=== PATIENT | male | born 1970 | race Caucasian/White ===

== ENCOUNTER 2023-07-19 07:02 | Outpatient (OUT) | payer BC, SELFPAY ==
[2023-07-19 08:04] LABS: Alanine Aminotransferase 66 U/L (16-63); Anion Gap 17.5; Aspartate Amino Transferase 51 U/L (15-37); BUN Creatinine Ratio 15.3; Calcium 9.7 mg/dL (8.5-10.1); Carbon Dioxide 27.1 mmol/L (21.0-32.0); Chloride 99 mmol/L (98-107); Chol HDL Ratio 4.1; Cholesterol 130 mg/dL (<=200); Estimated GFR (African America >60 (>=60); Estimated GFR (Non-African Ame >60 (>=60); Glucose 129 mg/dL (74-106); HDL Cholesterol 32 mg/dL (40-60); Potassium 3.6 mmol/L (3.5-5.1); Sodium 140 mmol/L (136-145); Triglycerides 299 mg/dL (<=150); VLDL CHOLESTEROL 59.8 mg/dL
== END 2023-07-19 07:03 | disposition home or self-care (01) ==
LOC: LAB 07:02
PROVIDERS: Family Provider Internal Medicine Cardiovascular Disease; PCP Family Medicine; Visit Provider Internal Medicine Cardiovascular Disease
DX: E78.5 Hyperlipidemia, unspecified (principal); I25.10 Atherosclerotic heart disease of native coronary artery without angina pectoris; E11.69 Type 2 diabetes mellitus with other specified complication; Z79.4 Long term (current) use of insulin
CPT/HCPCS: 36415; 80048; 80061; 84450; 84460

== ENCOUNTER 2024-02-28 07:02 | Outpatient (OUT) | payer BC, SELFPAY ==
[2024-02-28 07:54] LABS: Alanine Aminotransferase 37 U/L (16-63); Aspartate Amino Transferase 25 U/L (15-37)
== END 2024-02-28 07:03 | disposition home or self-care (01) ==
LOC: LAB 07:02
PROVIDERS: Family Provider Internal Medicine Cardiovascular Disease; PCP Family Medicine; Visit Provider Internal Medicine Cardiovascular Disease
DX: I25.10 Atherosclerotic heart disease of native coronary artery without angina pectoris (principal); Z98.61 Coronary angioplasty status; E78.2 Mixed hyperlipidemia
CPT/HCPCS: 36415; 84450; 84460

== ENCOUNTER 2025-01-28 07:27 | Outpatient (OUT) | payer BC, SELFPAY ==
--- OUTSIDE RECORDS SUMMARY | 2025-01-28 07:29 | XMS_ITS | Encounter Summary ---
Author Organization [facility] Address [address] [place] [address] Phone Care Team Providers Care Livestock Nutrition Territory Manager Name Role Phone Sherly Prasad MD Primary Care Provider [phone] Encounter Details Date Type Department Care Team (Late st Contact Info) Description 07/19/2023 Scanned Document [facility] [address] [place] [id number] Scanning, Generic Provider Social History Tobacco Use Types Packs/Day Years Used Date Smoking Tobacco: Former Cigarettes Smokeless Tobacco: Current Chew Alcohol Use Standard Drinks/Week Comments Never 0 (1 standard drink = 0.6 oz pur e alcohol) Sex and Gender Information Value Date Recorded Sex Assigned at Not on file Legal Sex Male 7:14 PM EST Gender Identity Not on file Sexual Orientation Not on file documented as of this encounter Plan of Treatment Upcoming Encounters Date Type Department Care Team (Late st Contact Info) Description 03/03/2025 11:00 AM EST Office Visit [address] [place] [phone] Marcus Barker, [address] [address], [address] [place] [address] 01/09/2026 8:30 AM EDT Office Visit [facility] [address] [place] [address] [address] [place] [address] Aleisha Fox, PARTS DELIVERY DRIVER-CLERICAL OFFICE [address] [facility] [address], [address] [place], [place] [id number] documented as of this encounter Visit Diagnoses Not on filedocumented in this encounter Care Teams Livestock Nutrition Territory Manager Relationship Specialty Start Date End Date Sherly Prasad MD [address] [place], [place] [id number] PCP - General 04/28/09 documented as of this encounter
--- OUTSIDE RECORDS SUMMARY | 2025-01-28 07:29 | XMS_ITS | Clinical Summary ---
Author Organization [facility] Address [address] [place] [address] Phone Care Team Providers Care Diamond Driller Name Role Phone Sherly Prasad MD Primary Care Provider [phone] Allergies Active Allergy Reactions Criticality Noted Date Comments Sergo Inhibitors Cough Low 02/05/2023 Medications aspirin 81 mg EC tablet Take 1 tablet (81 mg) by mouth once daily. 02/15/20 22 Active metFORMIN (Glucophage) 1,000 mg tablet Take 1 tablet (1,000 mg) by mouth 2 times daily (morning and late afternoon). Active glipiZIDE XL (Glucotrol XL) 10 mg 24 hr tablet Take 1 tablet (10 mg) by mouth once daily. Do not crush, chew, or split. Active pregabalin (Lyrica) 225 mg capsule Take 1 capsule (225 mg) by mouth 2 times a day. Active DULoxetine (Cymbalta) [address] capsule Take 1 capsule (30 mg) by mouth once daily. Do not crush or chew. Active empagliflozin (Jardiance) 10 mg Take 1 tablet (10 mg) by mouth once daily. Active hydroCHLOROthiazid e (HYDRODiuril) 50 mg tabletIndications: Essential hypertension, benign Take 1 tablet (50 mg) by mouth once daily. 90 tablet 3 02/25/20 24 025 Active nitroglycerin (Nitrostat) 0.4 mg SL tabletIndications: ASHD (arteriosclerotic heart disease),History of PTCA PLACE 1 TABLET UNDER YOUR TONGUE EVERY 5 MINUTES NEEDED FOR CHEST PAIN FOR 3 DOSES ONLY. IF NO RELIEF, CALL 911 25 tablet 3 12/29/19 25 Active metoprolol succinate XL (Toprol-XL) 25 mg 24 hr tabletIndications: Essential hypertension, benign Take 0.5 tablets (12.5 mg) by mouth once daily. 45 tablet 01/21/20 25 025 Active atorvastatin (Lipitor) 80 mg tabletIndications: Mixed hyperlipidemia Take 1 tablet (80 mg) by mouth once daily. 90 tablet 3 01/25/20 25 026 Active losartan (Cozaar) 100 mg tabletIndications: Essential hypertension, benign Take 1 tablet (100 mg) by mouth once daily. 90 tablet 3 01/25/20 25 026 Active atorvastatin (Lipitor) 80 mg tabletIndications: Mixed hyperlipidemia Take 1 tablet (80 mg) by mouth once daily. 90 tablet 3 02/25/20 24 025 Discontinued losartan (Cozaar) 100 mg tabletIndications: Essential hypertension, benign Take 1 tablet (100 mg) by mouth once daily. 90 tablet 3 02/25/20 025 Discontinued metoprolol succinate XL (Toprol-XL) 25 mg 24 hr tabletIndications: Essential hypertension, benign Take 0.5 tablets (12.5 mg) by mouth once daily. Do not crush or chew. 45 tablet 3 02/25/20 24 025 Discontinued Active Problems Problem Noted Date Diagnosed Date Obesity (BMI 30-39.9) 02/25/2024 Former smoker 02/25/2024 ASHD (arteriosclerotic heart disease) 02/05/2023 Diabetes (Multi) 02/05/2023 Essential hypertension, benign 02/05/2023 History of non-ST elevation myocardial infarctio n (NSTEMI) 02/05/2023 History of PTCA 02/05/2023 Hyperlipidemia 02/05/2023 Encounters Date Type Department Care Team Description 01/21/[address] [phone] Marcus Barker DO Mixed hyperlipidemia; Essential hypertension, benign 01/19/[address] [phone] Marcus Barker DO Essential hypertension, benign 01/06/2025 11:00 AM EDT Office Visit [facility] [address] [phone] Marcus Barker DO ASHD (arteriosclerotic heart disease); History of PTCA; History of non-ST elevation myocardial infarction (NSTEMI); Hyperlipidemia, unspecified hyperlipidemia type; Essential hypertension, benign; Obesity (BMI 30-39.9); Former smoker Discharge Disposition: Home 01/06/2025 Travel 12/23/[address] [phone] Marcus Barker DO ASHD (arteriosclerotic heart disease); History of PTCA from Last 3 Months Family History Medical History Relation Name Comments CABG Father Diabetes Father Heart attack Father Hyperlipidemia Father Relation Name Status Comments Father Social History Tobacco Use Types Packs/Day Years Used Date Smoking Tobacco: Former Cigarettes 0.5 11 S tarted: 1986 Smokeless Tobacco: Current Chew Tobacco Cessation:Ready to Q uit: Not Asked; Counseling Given: Not Answered Alcohol Use Standard Drinks/Week Comments Never 0 (1 standard drink = 0.6 oz pur e alcohol) Sex and Gender Information Value Date Recorded Sex Assigned at Not on file Legal Sex Male 7:14 PM EST Gender Identity Not on file Sexual Orientation Not on file Last Filed Vital Signs Vital Sign Reading Time Taken Comments Blood Pressure 144/80 01/06/2025 11:51 AM EDT Pulse 56 01/06/2025 11:51 AM EDT Temperature - - Respiratory Rate - - Oxygen Saturation - - Inhaled Oxygen Concentration - - Weight 118 kg (261 lb) 01/06/2025 11:51 AM EDT Height 180.3 cm (5' 11 ) 01/06/2025 11:51 AM EDT Body Mass Index 36.4 01/06/2025 11:51 AM EDT Plan of Treatment Upcoming Encounters Date Type Department Care Team (Late st Contact Info) Description 03/03/2025 11:00 AM EST Office Visit [address] [phone] Marcus Barker DO [address] [place] [address] [address], [address] [address] 01/09/2026 8:30 AM EDT Office Visit [facility] [address] [facility] [address] [place] [address] Aleisha Fox, CHIPPER OPERATOR-WEB DESIGN INTERN [address] [facility] [address] [place] [address] Health Maintenance Due Date Last Done Comments CT Colonography 1969 Colonoscopy 1969 Colorectal Cancer Screening 1969 Diabetes: Hemoglobin A1C 1969 Diabetes: Urine Protein Screening 1969 FIT-DNA (Cologuard) 1969 FIT 1969 HIV Screening 1969 Lipid Panel 1969 Sigmoidoscopy 1969 MMR Vaccines (1 of 1 - Stand saleem series) 1970 Diabetes: Retinopathy Screening 07/27/1979 Hepatitis C Screening 07/27/1987 Hepatitis B Vaccines (1 of 3 - 19+ 3-dose series) 1988 Pneumococcal Vaccine (1 of 2 - PCV) 1988 DTaP/Tdap/Td Vaccines (1 - Tdap) 07/27/1991 PSA Prostate Cancer Screening 07/27/2019 Zoster Vaccines (1 of 2) 07/27/2019 Yearly Adult Physical 02/16/2024 02/14/2023 COVID-19 Vaccine (1 - 2023-2 5 season) 2024 Influenza Vaccine (#1) 2024 HIB Vaccines Aged Out No longer eligi ble based on patient's age to complete this topic HPV Vaccines Aged Out No longer eligi ble based on patient's age to complete this topic Hepatitis A Vaccines Aged Out No long er eligible based on patient's age to complete this topic IPV Vaccines Aged Out No longer eligi ble based on patient's age to complete this topic Meningococcal Vaccine Aged Out No arvin anastasiya eligible based on patient's age to complete this topic Rotavirus Vaccines Aged Out No longer eligible based on patient's age to complete this topic Insurance [facility] Care Teams Diamond Driller Relationship Specialty Start Date End Date Sherly Prasad MD [address] [place] [id number] PCP - General 04/28/09
--- OUTSIDE RECORDS SUMMARY | 2025-01-28 07:29 | XMS_ITS | Encounter Summary ---
Author Organization [facility] Address [address] [place] [address] Phone Care Team Providers Care Director [employer] Name Role Phone Sherly Prasad MD Primary Care Provider [phone] Encounter Details Date Type Department Care Team (Late st Contact Info) Description 02/14/2023 Scanned Document [facility] [address] [place] [phone] Scanning, Generic Provider Social History Tobacco Use Types Packs/Day Years Used Date Smoking Tobacco: Never Assessed Sex and Gender Information Value Date Recorded Sex Assigned at Not on file Legal Sex Male 7:14 PM EST Gender Identity Not on file Sexual Orientation Not on file documented as of this encounter Plan of Treatment Upcoming Encounters Date Type Department Care Team (Late st Contact Info) Description 03/03/2025 11:00 AM EST Office Visit [address] [phone] Marcus Barker DO [facility] [facility] 2, [address] [address] 01/09/2026 8:30 AM EDT Office Visit [address] [phone] Aleisha Fox, MANAGER SMALL BUSINESS-MICROBIOLOGICAL LABORATORY TECHNICIAN [facility] 2, [address] [address] documented as of this encounter Visit Diagnoses Not on filedocumented in this encounter Care Teams Director [employer] Relationship Specialty Start Date End Date Sherly Prasad MD [address] [place] [address] [place] [address] PCP - General 04/28/09 documented as of this encounter
--- OUTSIDE RECORDS SUMMARY | 2025-01-28 07:29 | XMS_ITS | CCD ---
Author Organization [facility] Care Team Providers Care Arts Administrator Or Manager Name Role Phone Sherly Thompson Unavailable Unavailable Unavailable SHERLY THOMPSON Primary Care Physician Aylin, Dr. Velazquez Referring Unavailable Aylin, Dr. Velazquez Attending Unavailable Donna, Dr. Sherly Gee Primary Care Unav ailable DONNA, DR SHERLY Francis Primary Care Unavailable REQUEST, NONE LISTED Attending Unavaila ble REQUEST, NONE LISTED Admitting Unavaila ble REQUEST, NONE LISTED Consulting Unavaila ble AYLIN, DR ANGELIQUE Darden Consulting Diana THOMPSON, DR SHERLY Francis Primary Care Unavailable REQUEST, NONE LISTED Consulting Unavaila ble REQUEST, NONE LISTED Attending Unavaila ble REQUEST, NONE LISTED Admitting Unavaila ble AYLIN, DR ANGELIQUE Darden Attending Diana VIERA, DR ANGELIQUE Darden Admitting Diana THOMPSON, DR SHERLY Francis Primary Care Unavailable AYLIN, DR ANGELIQUE Darden Consulting Sherly Noyola Unavailable Sherly Thompson MD Primary Care Provider LUIS ALVES Attending Unavailable MARTINE DE LEON Attending Unavailable LUIS ALVES Attending Unavailable Sherly Thompson MD Primary Care Provider ANGELIQUE VIERA Referring Unavailable SHERLY THOMPSON Primary Care Unavailable Sherly Thompson MD Primary Care Provider [phone] Sherly Tohmpson MD Primary Care Provider Sherly Thompson MD Attending Provider Tony LUGO-SHILOH-Kendra Luque Attending Provider ANGELIQUE VIERA Attending Unavailable SHERLY THOMPSON Primary Care Unavailable ANGELIQUE VIERA Attending Unavailable ANGELIQUE VIERA Referring Unavailable SHERLY THOMPSON Primary Care Unavailable Allergies Allergy Classification Reported Allergen(s) Allergy Type Date of Onset Reaction(s) Facility (7 sources) Angiotensin Converting Enzyme (Sergo) Inhibitors; Translations: [SERGO Inhibitors] Allergy to drug (finding) 3 [facility] [place] Repository (1 source) patient allergy list reviewed by nurse or physicia Propensity to adverse reactions 7 Comment:Done [place] Other (1 source) Allergies Reconciled Propensity to adverse reactions Unknown [facility] Other (4 sources) Angiotensin-con verting enzyme inhibitor agent Drug Intolerance 3 [facility] Medications Current Medications Medication Drug Class(es) Dates Sig (Normalized) Sig (Original) alpha lipoic acid (LIPOIC ACID ORAL) (1 source) End: 02-20-2023 take 2 capsules by mouth once daily alpha lipoic acid (LIPOIC ACID ORAL) Take 2 capsules by mouth once daily. 0 02/20/2023 Discontinued (Other) aspirin 81 mg delayed release oral tablet (19 sources) Platelet Aggregation Inhibitor, Nonsteroidal Anti-inflammatory Drug Start: 02-14-2022 take 1 tablet by mouth once daily aspirin 81 mg EC tablet Take 1 tablet (81 mg) by mouth once daily. 02/14/2022 Active Start: 01-22-2018 take 1 tablet by chela once daily Aspirin 81 mg Tablet,Chewable Active 81 MG PO Daily 0 January 22, 2018 12:00am Complies with drug therapy take 1 capsule by mo vah once daily aspirin ([place]) 81 MG capsule Take 81 mg by mouth Daily Do not crush or chew. Active Baby Aspirin Act ange atorvastatin 80 mg oral tablet (20 sources) HMG-CoA Reductase Inhibitor Start: 01-23-2018 End: 02-24-2025 take 1 tablet by mouth once daily atorvastatin (Lipitor) 80 mg tablet Indications: Mixed hyperlipidemia Take 1 tablet (80 mg) by mouth once daily. 90 tablet 3 02/25/2024 02/24/2025 Active empagliflozin 25 mg oral tablet (20 sources) Sodium-Glucose Cotransporter 2 Inhibitor Start: 11-14-2023 End: 08-26-2024 take 1 tablet by mouth once daily Empagliflozin (Jardiance) 25 mg tablet Active 0 .ROUTE .COMPLEX August 26, 2024 8:37am TAKE 1 TABLET BY MOUTH EVERY DAY Complies with drug therapy Start: 08-15-2023 End: 11-14-2023 take 1 tablet by mouth once daily Empagliflozin (Jardiance) 25 mg tablet Discontinued 25 MG PO Daily August 15, 2023 12:00am November 14, 2023 10:51am Start: 02-14-2023 End: 08-15-2023 take 1 tablet by mouth once daily Empagliflozin (Jardiance) 10 mg tablet Discontinued 10 MG PO Daily August 15, 2023 12:00am August 15, 2023 8:49am Flash Glucose Scanning [place] (Freestyle Mili 2 [place]) misc (2 sources) Start: 03-12-2024 Flash Glucose Scanning [place] (Freestyle Mili 2 [place]) misc Active 0 .Route March 12, 2024 1:00am As directed Flash Glucose Sensor (Freestyle Mili 2 Sensor) kit (2 sources) Start: 03-12-2024 Flash Glucose Sensor (Freestyle Mili 2 Sensor) kit Active 0 .Route March 12, 2024 1:00am As directed glipiZIDE er 10 mg 24 hr extended release oral tablet (20 sources) Sulfonylurea Start: 03-24-2024 take 1 tablet by mouth once daily at breakfast Glipizide 10 mg tablet extended release 24hr Active 0 .ROUTE .COMPLEX March 24, 2024 2:55pm TAKE ONE TABLET BY MOUTH ONCE DAILY WITH BREAKFAST Complies with drug therapy Start: 12-24-2023 take 1 tablet by chela th every twenty-four hours at mealtime glipiZIDE XL (Glucotrol XL) 10 MG 24 hr tablet Take 10 mg by mouth in the morning. Take with meals. 12/24/2023 Active Start: 08-16-2022 End: 03-24-2024 take 1 tablet by mouth once daily at breakfast Glipizide 10 mg tablet extended release 24hr Discontinued 10 MG PO Daily August 15, 2023 12:00am March 24, 2024 2:55pm FreeTextSi tablet with breakfast Orally Once a day; Note: Source Status: Start; Refills: 3; Qty: 90 Tablet; Provider: Donna Dubois ( ) Start: 02-03-2021 End: 02-20-2023 take 1 tablet by mouth once daily glipiZIDE ER 5 MG Or al Tablet Extended Release 24 Hour TAKE ONE TABLET BY MOUTH DAILY Quantity: 30 Refills: 0 Ordered: 03-Feb-2021 Start : 03-Feb-2021 Active take 1 tablet by chela th before mealtime glipiZIDE (Glucotrol) 5 MG tablet Take 5 mg by mouth in the morning. Take before meals. Active hydroCHLOROthiazide 50 mg oral tablet (20 sources) Thiazide Diuretic Start: 06-26-2023 End: 12-25-2023 take 1 tablet by mouth once daily in the morning Hydrochlorothiazide 50 mg tablet Discontinued 0 .ROUTE .COMPLEX October 27, 2023 9:33am December 25, 2023 8:16am TAKE ONE TABLET BY MOUTH ONCE DAILY IN THE MORNING Start: 08-16-2022 End: 02-24-2025 take 1 tablet by mouth once daily hydroCHLOROthiazide (HYDRODiuril) 50 mg tablet Indications: Essential hypertension, benign Take 1 tablet (50 mg) by mouth once daily. 90 tablet 3 02/25/2024 02/24/2025 Active Start: 02-28-2022 End: 02-20-2023 take 1 capsule by mouth once daily hydroCHLOROthiazide 12.5 MG Oral Capsule TAKE ONE CAPSULE BY MOUTH DAILY Quantity: 90 Refills: 3 Ordered: 01-Mar-2022 Aylin SMALLWOOD Angelique Start : 28-Feb-2022 Active hydroCHLOROthiazide 25 mg / lisinopril 20 mg oral tablet (2 sources) Thiazide Diuretic, Angiotensin Converting Enzyme Inhibitor Start: 01-21-2018 take 1 tablet by mouth once daily Lisinopril-Hydrochlorothiazide 20-25 mg Tablet Active 1 TAB PO Daily January 21, 2018 12:00am Complies with drug therapy losartan potassium 100 mg oral tablet (20 sources) Angiotensin 2 Receptor Tom Start: 08-15-2023 End: 02-24-2025 take 1 tablet by mouth once daily losartan (Cozaar) 100 mg tablet Indications: Essential hypertension, benign Take 1 tablet (100 mg) by mouth once daily. 90 tablet 3 02/25/2024 02/24/2025 Active Start: 02-05-2023 End: 02-20-2023 take 1 tablet by mouth once daily losartan (Cozaar) 100 mg tablet Indications: Essential hypertension, benign TAKE ONE TABLET BY MOUTH ONCE DAILY 90 tablet 3 02/05/2023 Active metFORMIN hydrochloride 1000 mg oral tablet (20 sources) Biguanide Start: 07-22-2024 take 1 tablet by mouth twice daily Metformin 1,000 mg tablet Active 0 .ROUTE .COMPLEX 60 July 22, 2024 3:53pm TAKE ONE TABLET BY MOUTH TWICE A DAY Complies with drug therapy Start: 03-12-2024 End: 07-22-2024 take 1 tablet by mouth once daily Metformin 1,000 mg tablet Discontinued 0 .ROUTE .COMPLEX March 12, 2024 10:17am July 22, 2024 3:53pm TAKE ONE TABLET BY MOUTH once A DAY Start: 07-24-2023 End: 03-12-2024 take 1 tablet by mouth twice daily Metformin 1,000 mg tablet Discontinued 0 .ROUTE .COMPLEX 60 February 16, 2024 4:55pm March 12, 2024 10:17am TAKE ONE TABLET BY MOUTH TWICE A DAY Start: 11-20-2021 End: 07-24-2023 take 1 tablet by mouth twice daily Metformin 1,000 mg tablet Discontinued 1000 MG PO Twice daily July 24, 2023 12:00am July 24, 2023 12:59pm Start: 02-03-2021 metFORMIN HCl - 500 MG Oral Tablet Quantity: 60 Refills: 0 Ordered: 03-Feb-2021 DO Start : 03-Feb-2021 Active metoprolol tartrate 25 mg oral tablet (20 sources) beta-Adrenergic Tom Start: 03-12-2024 Metopr olol Tartrate 25 mg tablet Active 12.5 MG PO Daily March 12, 2024 10:03am Complies with drug therapy Start: 02-25-2024 End: 02-24-2025 take 0.5 tablet by mouth once daily metoprolol succinate XL (Toprol-XL) 25 mg 24 hr tablet Indications: Essential hypertension, benign Take 0.5 tablets (12.5 mg) by mouth once daily. Do not crush or chew. 45 tablet 3 02/25/2024 02/24/2025 Active Start: 01-22-2024 End: 02-25-2024 take 0.5 tablet by mouth in the morning metoprolol tartrate (Lopressor) 25 mg tablet Indications: ASHD (arteriosclerotic heart disease) , Essential hypertension, benign , History of non-ST elevation myocardial infarction (NSTEMI) Take 0.5 tablets (12.5 mg) by mouth early in the morning.. 45 tablet 3 02/25/2024 02/25/2024 Discontinued (Therapy completed) Start: 03-04-2022 End: 02-20-2023 metoprolol tartrate (Lopress or) 25 mg tablet Indications: History of non-ST elevation myocardial infarction (NSTEMI) , ASHD (arteriosclerotic heart disease) , Essential hypertension, benign TAKE HALF TABLET TWICE A DAY 90 tablet 3 02/05/2023 Active Start: 01-23-2018 End: 03-12-2024 take 1 tablet by mouth twice daily Metoprolol Tartrate 25 mg Tablet Discontinued 25 MG PO Twice daily 60 January 23, 2018 12:00am March 12, 2024 10:04am Metoprolol Succi tracy 25 MG 1 tablet once a day Active take 1 tablet by chela once daily Metoprolol Tartrate 25 MG Oral Tablet TAKE 1 TABLET DAILY. Quantity: 0 Refills: 0 Ordered: 14-Feb-2022 DO Active nitroglycerin 0.4 mg sublingual tablet (6 sources) Nitrate Vasodilator Start: 12-28-2024 nitroglyce rin (Nitrostat) 0.4 mg SL tablet Indications: ASHD (arteriosclerotic heart disease) , History of PTCA PLACE 1 TABLET UNDER YOUR TONGUE EVERY 5 MINUTES NEEDED FOR CHEST PAIN FOR 3 DOSES ONLY. IF NO RELIEF, CALL 911 25 tablet 3 12/28/2024 Active Start: 02-20-2023 End: 02-20-2024 nitroglycerin (Nitrostat) 0. 4 mg SL tablet Indications: ASHD (arteriosclerotic heart disease) , History of PTCA Place 1 tablet (0.4 mg) under the tongue every 5 minutes if needed for chest pain. May repeat dose every 5 minutes for up to 3 doses total. 100 tablet 11 02/20/2023 Active pregabalin 225 mg oral capsule (20 sources) Start: 09-22-2024 take 1 capsule by mouth twice daily Pregabalin 225 mg capsule Active 225 MG PO Twice daily 60 September 22, 2024 8:23am Complies with drug therapy Start: 03-12-2024 End: 09-22-2024 take 1 capsule by mouth twice daily Pregabalin 200 mg capsule Discontinued 200 MG PO Twice daily 60 30 August 23, 2024 8:25am September 22, 2024 8:23am Start: 08-21-2022 End: 03-12-2024 take 1 capsule by mouth twice daily Pregabalin 225 mg capsule Discontinued 225 MG PO Twice daily August 15, 2023 8:50am September 25, 2023 8:43am FreeTextSi capsule Orally Twice a day; Note: Source Status: Start; Refills: 1; Qty: 180 Capsule; Provider: Donna Dubios ( ) Start: 08-02-2022 take 1 capsule by mo uth twice daily Pregabalin 200 MG TAKE ONE CAPSULE BY MOUTH TWICE A DAY for 30 days Jul, Active Start: 10-08-2021 End: 02-20-2023 take 1 capsule by mouth twice daily pregabalin (Lyrica) 150 mg capsule Take 1 capsule (150 mg) by mouth 2 times a day. 0 10/08/2021 02/20/2023 Discontinued (Other) Start: 04-06-2021 take 1 capsule by mo uth twice daily Pregabalin 100 MG Oral Capsule TAKE ONE CAPSULE BY MOUTH TWICE A DAY Quantity: 60 Refills: 0 Ordered: 04-Jun-2021 DO Start : 06-Apr-2021 Complete Start: 02-07-2021 Pregabalin 75 MG Oral Capsule Quantity: 60 Refills: 0 Ordered: 07-Feb-2021 DO Start : 07-Feb-2021 Active Completed/Discontinued Medications Medication Drug Class(es) Dates Sig (Normalized) Sig (Original) azithromycin 250 mg oral tablet (2 sources) Macrolide Antimicrobial Start: 07-27-2024 End: 09-10-2024 Azithromycin 250 mg tablet Discontinued 0 PO .COMPLEX July 27, 2024 12:00am September 10, 2024 9:21am For 250 mg dose pack: take 500 mg today (day 1), then 250 mg for 4 days (days 2-5) PO benzonatate 200 mg oral capsule (2 sources) Non-narcotic Antitussive Start: 07-27-2024 End: 09-10-2024 Benzonatate 200 mg capsule Discontinued 200 MG PO 2-3 TIMES PER DAY as needed for cough July 27, 2024 12:00am September 10, 2024 9:25am cephalexin 500 mg oral capsule (2 sources) Cephalosporin Antibacterial Start: 08-15-2023 End: 03-12-2024 take 1 capsule by mouth three times daily Cephalexin 500 mg capsule Discontinued 500 MG PO Three times daily 15 11August 15, 2023 12:00am March 12, 2024 10:23am clopidogrel 75 mg oral tablet (2 sources) [id number] Platelet Inhibitor Start: 01-23-2018 End: 02-17-2019 take 1 tablet by mouth once daily Clopidogrel (Plavix) 75 mg tablet Discontinued 75 MG PO Daily January 23, 2018 12:00am February 16, 2019 12:00am February 17, 2019 12:02am DULoxetine 30 mg delayed release oral capsule (11 sources) Serotonin and Norepinephrine Reuptake Inhibitor Start: 08-15-2023 End: 09-10-2024 take 1 capsule by mouth once daily Duloxetine (Cymbalta) 30 mg capsule,delayed release(DR/EC) Discontinued 30 MG PO Daily August 15, 2023 12:00am September 10, 2024 9:24am FreeTextSi capsule Orally Once a day; Note: Source Status: Continue; Provider: SMOOTH Flash Glucose Scanning [place] (Freestyle Mili 14 Day [place]) misc (2 sources) Start: 03-12-2024 End: 03-12-2024 Flash Glucose Scanning [place] (Freestyle Mili 14 Day [place]) misc Discontinued 0 .Route March 12, 2024 1:00am March 12, 2024 2:27pm As directed Flash Glucose Sensor (Freestyle Mili 14 Day Sensor) kit (2 sources) Start: 03-12-2024 End: 03-12-2024 Flash Glucose Sensor (Freestyle Mili 14 Day Sensor) kit Discontinued 0 .Route March 12, 2024 1:00am March 12, 2024 2:27pm As directed Lipoic Acid CAPS (4 sources) Lipoic Acid CAPS 2 tabs daily Quantity: 0 Refills: 0 Ordered: 14-Feb-2022 DO Active Problems Active Problems Problem Classification Problem Date Documented Da te Episodic/Chronic Acute myocardial infarction (2 sources) Myocardial infarction; Translations: [Non-ST elevation (NSTEMI) myocardial infarction] 04-09-2023 Chronic Comment on above: Problem List clean-u p per request of Phys. EHR Cmte Chronic obstructive pulmonary disease and bronchiectasis (2 sources) Bronchitis; Translations: [Bronchitis, not specified as acute or chronic] 07-27-2024 Episodic Coronary atherosclerosis and other heart disease (20 sources) History of non-ST segment elevation myocardial infarction; Translations: [Old myocardial infarction] Onset: 07-05-2022 Chronic Coronary atherosclerosis and other heart disease (5 sources) Coronary angioplasty status; Translations: [CORONARY ANGIOPLASTY STATUS] Onset: 07-09-2022 Episodic Diabetes mellitus with complications (20 sources) Diabetic peripheral neuropathy; Translations: [Type 2 diabetes mellitus with diabetic polyneuropathy] Onset: 02-05-2023 Chronic Diabetes mellitus without complication (14 sources) Diabetes mellitus; Translations: [Diabetes mellitus without mention of complication, type II or unspecified type, not stated as uncontrolled] Onset: 02-05-2023 02-05-2023 Chronic Disorders of lipid metabolism (20 sources) Hyperlipidemia; Translations: [Other and unspecified hyperlipidemia] Onset: 02-05-2023 02-20-2023 Chronic Essential hypertension (20 sources) Benign essential hypertension; Translations: [Benign essential hypertension] Onset: 08-13-2016 Chronic Comment on above: Problem List clean-u p per request of Phys. EHR Cmte Open wounds of extremities (1 source) Laceration of upper arm; Translations: [Laceration without foreign body of left upper arm, initial encounter] Onset: 09-19-2021 Episodic Other aftercare (3 sources) Long-term current use of insulin; Translations: [senior care (current) use of insulin] Episodic Other circulatory disease (1 source) Elevated blood-pressure reading without diagnosis of hypertension; Translations: [Elevated blood-pressure reading, without diagnosis of hypertension] Episodic Other connective tissue disease (1 source) Neuralgia; Translations: [Neuralgia and neuritis, unspecified] Episodic Other nervous system disorders (1 source) Mononeuropathy of lower limb; Translations: [Unspecified mononeuropathy of bilateral lower limbs] Chronic Other nervous system disorders (7 sources) Polyneuropathy; Translations: [Polyneuropathy, unspecified] Onset: 12-03-2023 01-05-2024 Chronic Other nervous system disorders (4 sources) Bilateral ulnar nerve disorder; Translations: [Lesion of ulnar nerve, bilateral upper limbs] 01-05-2024 Chronic Other nutritional; endocrine; and metabolic disorders (5 sources) Severe obesity; Translations: [Morbid obesity] Chronic Other nutritional; endocrine; and metabolic disorders (6 sources) Obesity; Translations: [Obesity, unspecified] 04-09-2023 Chronic Comment on above: Problem List clean-u p per request of Phys. EHR Cmte Other nutritional; endocrine; and metabolic disorders (1 source) Obese class II; Translations: [Body mass index (BMI) 36.0-36.9, adult] Chronic Other nutritional; endocrine; and metabolic disorders (5 sources) Body mass index 30+ - obesity; Translations: [Body mass index (BMI) 35.0-35.9, adult] Onset: 02-25-2024 02-25-2024 Chronic Other nutritional; endocrine; and metabolic disorders (2 sources) Obesity caused by energy imbalance; Translations: [Morbid (severe) obesity due to excess calories] 09-10-2024 Chronic Other nutritional; endocrine; and metabolic disorders (2 sources) Obesity, unspecified; Translations: [Obesity, unspecified] Onset: 01-06-2025 Chronic Other nutritional; endocrine; and metabolic disorders (2 sources) Body mass index (BMI) 35.0-35.9, adult; Translations: [Body mass index (BMI) 35.0-35.9, adult] Onset: 02-25-2024 Chronic Other screening for suspected conditions (not mental disorders or infectious disease) (3 sources) Encounter for screening for malignant neoplasm of colon; Translations: [Patient encounter status] Episodic Residual codes; unclassified (5 sources) Chews tobacco ; Translations: [Uses chewing tobacco] Episodic Residual codes; unclassified (2 sources) Colon cancer screening declined; Translations: [Procedure and treatment not carried out because of patient's decision for unspecified reasons] 09-10-2024 Episodic Screening and history of mental health and substance abuse codes (12 sources) Ex-smoker; Translations: [Personal history of tobacco use] Onset: 02-25-2024 02-25-2024 Episodic Skin and subcutaneous tissue infections (2 sources) Cellulitis of lower leg; Translations: [Cellulitis of right lower limb] 08-16-2023 Episodic Past or Other Problems Problem Classification Problem Date Documented Da te Episodic/Chronic Other aftercare (2 sources) exterminator termite (current) use of insulin; Translations: [senior care (current) use of insulin (Multi)] Onset: 02-05-2023 Episodic Other nervous system disorders (3 sources) Paresthesia; Translations: [Paresthesia of skin] Onset: 12-03-2023 12-03-2023 Episodic Results Test Name Value Interpretation Reference Range Facility Cardiac stress study Hortencia jean baptiste 03-18-[address], [address] [place] [address] Exercise Stress Test Patient Name: KEVON MAYEN Ordering Provider: [id number] ANGELIQUE VIERA Study Date: 03/18/2024 Reading Physician: [id number] Leena Ramirez MD MRN/PID: [id number] Supervising Physician: [id number] Angelique Viera DO Fellow: Date of /Age: 3 1970 / 53 years Fellow: Gender: M Nurse: Dorothea Westfall RN Admission Status: Algorithm Developer: RANJIT Height: 180.34 cm Technologist: Weight: 115.21 kg Additional Staff: BSA: 2.33 m2 BMI: 35.43 kg/m2 Patient Location: Study Type: STRESS TEST ONLY Diagnosis/ICD: Atherosclerotic heart disease-I25.10; Old myocardial infarction-I25.2; Essential (primary) hypertension-I10; Coronary angioplasty status (PTCA)-Z98.61; Hyperlipidemia unspecified-E78.5 Indication: Hypertension CPT Codes: Stress Test Interpretation-03958 ; Stress Test Supervision-[id number] Falls Risk: Low: Patient has low risk for sustaining a fall; environmental safety interventions in place. Study Details: Correct procedure and correct patient verified verbally. Patient Performance: The peak heart rate achieved was 131 bpm, which was 79 % of the age predicted target heart rate of 165 bpm. The resting blood pressure was 128/82 mmHg with a heart rate of 59 bpm. The standing blood pressure was 126/80 mmHg with a heart rate of 62 bpm. The patient's functional capacity was below average. The patient developed leg fatigue during the stress exam. The symptoms resolved with rest. The blood pressure response was normal. The test was terminated due to: leg fatigue and musculoskeletal weakness. Sinus tachycardia. Double Product (HR x BP): 217. Baseline ECG: Normal sinus rhythm nonspecific ST-T changes and PVCs. Stress Stage Data: + +- --+------+-------+ HR Sys BP Valentino BP + +- --+------+-------+ Baseline Resting 59 128 82 + +- --+------+-------+ Baseline Standing 62 126 80 + +- --+------+-------+ Stage I 102 148 86 + +- --+------+-------+ Stage II 130 166 88 + +- --+------+-------+ Recovery ECG: The heart rate recovery was normal. + +---+-- ----+-------+ HR Sys BP Valentino BP + +---+-- ----+-------+ Recovery I 131 166 84 + +---+-- ----+-------+ Recovery II 123 166 86 + +---+-- ----+-------+ Recovery III 91 150 78 + +---+-- ----+-------+ Recovery IV 78 128 84 + +---+-- ----+-------+ Summary: 1. Submaximal graded exercise stress test with nondiagnostic ST-T changes for exercise-induced ischemia. 2. No provoked chest pain or arrhythmia with exercise. 3. PVCs noted at baseline and during recovery but were abolished at peak exercise. 4. Fair exercise tolerance and cardiopulmonary conditioning. 5. Submaximal heart rate response to exercise. 6. Appropriate blood pressure response to exercise. 7. Normal heart rate recovery phase. 8. Submaximal level of stress achieved. [id number] Leena Ramirez MD Electronically signed on 03/18/2024 at 12:20:08 PM Final Leena Abraham MD - 03/18/[address], [place] [address] Exercise Stress Test Patient Name: KEVON MAYEN Ordering Provider: [id number] ANGELIQUE VIERA Study Date: 03/18/2024 Reading Physician: [id number] Leena Ramirez MD MRN/PID: [id number] Supervising Physician: [id number] Viera DO Fellow: Date of /Age: 3 1970 / 53 years Fellow: Gender: M Nurse: Dorothea Westfall RN Admission Status: Algorithm Developer: NA Height: 180.34 cm Technologist: Weight: 115.21 kg Additional Staff: BSA: 2.33 m2 BMI: 35.43 kg/m2 Patient Location: Study Type: STRESS TEST ONLY Diagnosis/ICD: Atherosclerotic heart disease-I25.10; Old myocardial infarction-I25.2; Essential (primary) hypertension-I10; Coronary angioplasty status (PTCA)-Z98.61; Hyperlipidemia unspecified-E78.5 Indication: Hypertension CPT Codes: Stress Test Interpretation-44769 ; Stress Test Supervision-[id number] Falls Risk: Low: Patient has low risk for sustaining a fall; environmental safety interventions in place. Study Details: Correct procedure and correct patient verified verbally. Patient Performance: The peak heart rate achieved was 131 bpm, which was 79 % of the age predicted target heart rate of 165 bpm. The resting blood pressure was 128/82 mmHg with a heart rate of 59 bpm. The standing blood pressure was 126/80 mmHg with a heart rate of 62 bpm. The patient's functional capacity was below average. The patient developed leg fatigue during the stress exam. The symptoms resolved with rest. The blood pressure response was normal. The test was terminated due to: leg fatigue and musculoskeletal weakness. Sinus tachycardia. Double Product (HR x BP): 217. Baseline ECG: Normal sinus rhythm nonspecific ST-T changes and PVCs. Stress Stage Data: + +- --+------+-------+ HR Sys BP Valentino BP + +- --+------+-------+ Baseline Resting 59 128 82 + +- --+------+-------+ Baseline Standing 62 126 80 + +- --+------+-------+ Stage I 102 148 86 + +- --+------+-------+ Stage II 130 166 88 + +- --+------+-------+ Recovery ECG: The heart rate recovery was normal. + +---+-- ----+-------+ HR Sys BP Valentino BP + +---+-- ----+-------+ Recovery I 131 166 84 + +---+-- ----+-------+ Recovery II 123 166 86 + +---+-- ----+-------+ Recovery III 91 150 78 + +---+-- ----+-------+ Recovery IV 78 128 84 + +---+-- ----+-------+ Summary: 1. Submaximal graded exercise stress test with nondiagnostic ST-T changes for exercise-induced ischemia. 2. No provoked chest pain or arrhythmia with exercise. 3. PVCs noted at baseline and during recovery but were abolished at peak exercise. 4. Fair exercise tolerance and cardiopulmonary conditioning. 5. Submaximal heart rate response to exercise. 6. Appropriate blood pressure response to exercise. 7. Normal heart rate recovery phase. 8. Submaximal level of stress achieved. [id number] Leena Ramirez MD Electronically signed on 03/18/2024 at 12:20:08 PM Final [facility] Work Phone: Cardiac stress study Procedu reOrdered By: Leena Ramirez on 03-18-2024 [facility] Work Phone: STRESS TEST ONLYon 4 STRESS TEST ONLY [address], [place] [address] Exercise Stress Test Patient Name: KEVON MAYEN Ordering Provider: [id number] ANGELIQUE VIERA Study Date: 03/18/2024 Reading Physician: [id number] Leena Ramirez MD MRN/PID: [id number] Supervising Physician: [id number] Angelique Viera DO Fellow: Date of /Age: 3 1970 / 53 years Fellow: Gender: M Nurse: Dorothea Westfall RN Admission Status: Algorithm Developer: NA Height: 180.34 cm Technologist: Weight: 115.21 kg Additional Staff: BSA: 2.33 m2 BMI: 35.43 kg/m2 Patient Location: Study Type: STRESS TEST ONLY Diagnosis/ICD: Atherosclerotic heart disease-I25.10; Old myocardial infarction-I25.2; Essential (primary) hypertension-I10; Coronary angioplasty status (PTCA)-Z98.61; Hyperlipidemia unspecified-E78.5 Indication: Hypertension CPT Codes: Stress Test Interpretation-[id number] ; Stress Test Supervision-[id number] Falls Risk: Low: Patient has low risk for sustaining a fall; environmental safety interventions in place. Study Details: Correct procedure and correct patient verified verbally. Patient Performance: The peak heart rate achieved was 131 bpm, which was 79 % of the age predicted target heart rate of 165 bpm. The resting blood pressure was 128/82 mmHg with a heart rate of 59 bpm. The standing blood pressure was 126/80 mmHg with a heart rate of 62 bpm. The patient's functional capacity was below average. The patient developed leg fatigue during the stress exam. The symptoms resolved with rest. The blood pressure response was normal. The test was terminated due to: leg fatigue and musculoskeletal weakness. Sinus tachycardia. Double Product (HR x BP): 217. Baseline ECG: Normal sinus rhythm nonspecific ST-T changes and PVCs. Stress Stage Data: + +- --+------+-------+ HR Sys BP Valentino BP + +- --+------+-------+ Baseline Resting 59 128 82 + +- --+------+-------+ Baseline Standing 62 126 80 + +- --+------+-------+ Stage I 102 148 86 + +- --+------+-------+ Stage II 130 166 88 + +- --+------+-------+ Recovery ECG: The heart rate recovery was normal. + +---+-- ----+-------+ HR Sys BP Valentino BP + +---+-- ----+-------+ Recovery I 131 166 84 + +---+-- ----+-------+ Recovery II 123 166 86 + +---+-- ----+-------+ Recovery III 91 150 78 + +---+-- ----+-------+ Recovery IV 78 128 84 + +---+-- ----+-------+ Summary: 1. Submaximal graded exercise stress test with nondiagnostic ST-T changes for exercise-induced ischemia. 2. No provoked chest pain or arrhythmia with exercise. 3. PVCs noted at baseline and during recovery but were abolished at peak exercise. 4. Fair exercise tolerance and cardiopulmonary conditioning. 5. Submaximal heart rate response to exercise. 6. Appropriate blood pressure response to exercise. 7. Normal heart rate recovery phase. 8. Submaximal level of stress achieved. [id number] Leena Ramirez MD Electronically signed on 03/18/2024 at 12:20:08 PM Final [facility] CBC AUTO DIFFon 07-05-2022 BASO # 0.0 103/ul Normal 0.0-0.1 [facility] Comment on above: Performed By: #### D ATCBC #### [facility] [address] [place] [address] Dr. Fabienne Pride Basophils/100 WBC (Bld) 0.5 % Normal 0.2-2.0 [facility] Comment on above: Performed By: #### D ATCBC #### [facility] [address] [place] [address] Dr. Fabienne Pride EO # 0.0 103/ul Normal 0.0-0.7 [facility] Comment on above: Performed By: #### D ATCBC #### [facility] [address] [place] [address] Dr. Fabienne Pride Eosinophils/100 WBC (Bld) 0.5 % Critically low 0.9-7.0 [facility] Comment on above: Performed By: #### D ATCBC #### [facility] [address] [place] [address] Dr. Fabienne Pride Erythrocyte distribution width (RBC) [Ratio] 14.0 % Normal 11.0-15.0 [facility] Comment on above: Performed By: #### D ATCBC #### [facility] [address] [place] [address] Dr. Fabienne Pride Hematocrit (Bld) [Volume fraction] 40.5 % Critically low 42.0-54.0 [facility] Comment on above: Performed By: #### D ATCBC #### [facility] [address] [place] [address] Dr. Fabienne Pride Hemoglobin (Bld) [Mass/Vol] 14.0 g/dL Normal 14.0-18.0 [facility] Comment on above: Performed By: #### D ATCBC #### [facility] [address] [place] [address] Dr. Fabienne Pride IG # 0.03 10e3/ul Normal 0.00-0.03 [facility] Comment on above: Performed By: #### D ATCBC #### [facility] [address] [place] [address] Dr. Fabienne Pride IG % 0.4 % Normal 0.0-0.5 [facility] Comment on above: Performed By: #### D ATCBC #### [facility] [address] [place] [address] Dr. Fabienne Pride LYMPH # 2.2 103/ul Normal 1.2-3.8 [facility] Comment on above: Performed By: #### D ATCBC #### [facility] [address] [place] [address] [address] Fabienne Pride Lymphocytes/100 WBC (Bld) 26.5 % Normal 20.5-60.0 [facility] Comment on above: Performed By: #### D ATCBC #### [facility] [address] [place] [address] Dr. Fabienne Pride MCH (RBC) [Entitic mass] 28.2 pg Normal 25.9-34.0 [facility] Comment on above: Performed By: #### D ATCBC #### [facility] [address] [place] [address] Dr. Fabienne Pride MCHC (RBC) [Mass/Vol] 34.6 g/dL Normal 29.9-35.2 [facility] Comment on above: Performed By: #### D ATCBC #### [facility] [address] [place] [address] Dr. Fabienne Pride MCV (RBC) [Entitic vol] 81.5 fL Normal 80.0-94.0 [facility] Comment on above: Performed By: #### D ATCBC #### [facility] [address] [place] [address] Dr. Fabienne Pride MONO # 1.5 103/ul Critically high 0.3-0.[address] [facility] Comment on above: Performed By: #### D ATCBC #### [facility] [address] [place] [address] Dr. Fabienne Pride Monocytes/100 WBC (Bld) 17.7 % Critically high 1.7-12.0 [facility] Comment on above: Performed By: #### D ATCBC #### [facility] [address] [place] [address] Dr. Fabienne Pride NEUT # 4.5 103/ul Normal 1.4-6.5 [facility] Comment on above: Performed By: #### D ATCBC #### [facility] [address] [place] [address] Dr. Fabienne Pride Neutrophils/100 WBC (Bld) 54.4 % Normal 43.0-75.0 [facility] Comment on above: Performed By: #### D ATCBC #### [facility] [address] [place] [address] [address] Fabienne Pride Platelet mean volume (Bld) [Entitic vol] 10.8 fL Normal 9.5-13.5 [facility] Comment on above: Performed By: #### D ATCBC #### [facility] [address] [place] [address] [address] Fabienne Pride PLT 221 103/ul Normal 150-450 [facility] Comment on above: Performed By: #### D ATCBC #### [facility] [address] [place] [address] Dr. Fabienne Pride RBC 4.97 106/ul Normal 4.70-6.10 [facility] Comment on above: Performed By: #### D ATCBC #### [facility] [address] [place] [address] Dr. Fabienne Pride WBC 8.2 103/ul Normal 4.0-11.0 [facility] Comment on above: Performed By: #### D ATCBC #### [facility] [address] [place] [address] Dr. Fabienne Pride KATINA- BMP WITH LIPIDon 2022 Anion gap [Moles/Vol] 14.4 mmol/L Normal [facility] Comment on above: Performed By: #### D ATBMP #### [facility] [address] [place] [address] Dr. Fabienne Pride Calcium [Mass/Vol] 9.4 mg/dL Normal 8.5-10.1 [facility] Comment on above: Performed By: #### D ATBMP #### [facility] [address] [place] [address] Dr. Fabienne Pride Chloride [Moles/Vol] 98 mmol/L Normal 98-107 [facility] Comment on above: Performed By: #### D ATBMP #### [facility] [address] [place] [address] [address] Fabienne Pride Cholesterol [Mass/Vol] 104 mg/dL Normal <=200 [facility] Comment on above: Performed By: #### D ATBMP #### [facility] [address] [place] [address] [address] Fabienne Pride Cholesterol in HDL [Mass/Vol] 28 mg/dL Critically low 40-60 [facility] Comment on above: Performed By: #### D ATBMP #### [facility] [address] [place] [address] [address] Fabienne Pride Cholesterol in LDL [Mass/Vol] 51.2 mg/dL Normal [facility] Comment on above: Performed By: #### D ATBMP #### [facility] [address] [place] [address] [address] Fabienne Pride CO2 [Moles/Vol] 28.9 mmol/L Normal 21.0-32.0 [facility] Comment on above: Performed By: #### D ATBMP #### [facility] [address] [place] [address] [address] Fabienne Pride Creatinine [Mass/Vol] 1.01 mg/dL Normal 0.70-1.30 [facility] Comment on above: Performed By: #### D ATBMP #### [facility] [address] [place] [address] [address] Fabienne Pride EGFR-AF GUATEMALAN >60 Normal >=60 [facility] Comment on above: Performed By: #### D ATBMP #### [facility] [address] [place] [address] [address] Fabienne Pride EGFR-NON AF GUATEMALAN >60 Normal >=60 [facility] Comment on above: Performed By: #### D ATBMP #### [facility] [address] [place] [address] [address] Fabienne Pride Glucose [Mass/Vol] 107 mg/dL Critically high 74-106 [facility] Comment on above: Performed By: #### D ATBMP #### [facility] [address] [place] [address] [address] Fabienne Pride HDL NORMAL > or = 60 mg/dl - LOW CARDIOVASCULAR RISK <40 mg/dl - HIGH CARDIOVASCULAR RISK Normal [facility] Comment on above: Performed By: #### D ATBMP #### [facility] [address] [place] [address] [address] Fabienne Pride LDL CALC NORMAL SEE BELOW Normal [facility] Comment on above: Result Comment: <100 mg/dl OPTIMAL 100 - 129 mg/dl NEAR OR ABOVE OPTIMAL 130 - 159 mg/dl BORDERLINE HIGH 160 - 189 mg/dl HIGH >190 mg/dl VERY HIGH Performed By: #### D ATBMP #### [facility] [address] [place] [address] [address] Fabienne Pride Potassium [Moles/Vol] 3.3 mmol/L Critically low 3.5-5.1 [facility] Comment on above: Performed By: #### D ATBMP #### [facility] [address] [place] [address] [address] Fabienne Pride Sodium [Moles/Vol] 138 mmol/L Normal 136-145 [facility] Comment on above: Performed By: #### D ATBMP #### [facility] [address] [place] [address] [address] Fabienne Pride Triglyceride [Mass/Vol] 124 mg/dL Normal <=150 [facility] Comment on above: Performed By: #### D ATBMP #### [facility] [address] [place] [address] [address] Fabienne Pride Urea nitrogen [Mass/Vol] 15.0 mg/dL Normal 7.0-18.0 [facility] Comment on above: Performed By: #### D ATBMP #### [facility] [address] [place] [address] [address] Fabienne Pride Urea nitrogen/Creatinine [Mass ratio] 14.9 mg/mg Normal [facility] Comment on above: Performed By: #### D ATBMP #### [facility] [address] [place] [address] [address] Fabienne Pride VLDL CALC 24.8 mg/dL Normal [facility] Comment on above: Performed By: #### D ATBMP #### [facility] [address] [place] [address] [address] Fabienne Pride GLYCOHEMOGLOBIN A1Con 2022 ADA RECOMMENDATION SEE BELOW Normal [facility] Comment on above: Result Comment: ADA RECOMMENDED LIMIT 4.0 - 6.0 ADA THERAPEUTIC TARGET < 7.0 ACTION SUGGESTED > 7.0 Performed By: #### D ATA1C #### [facility] [address] [place] [address] [address] Fabienne Pried Glucose [Mass/Vol] 192 mg/dL Normal [facility] Comment on above: Performed By: #### D ATA1C #### [facility] [address] [place] [address] Dr. Fabienne Pride HbA1c (Bld) [Mass fraction] 8.3 % Critically high 4.5-6.2 [facility] Comment on above: Performed By: #### D ATA1C #### [facility] [address] [place] [address] Dr. Fabienne Pride SGOTon 07-05-2022 AST [Catalytic activity/Vol] 49 U/L Critically high 15-37 [facility] Comment on above: Performed By: #### A LT, AST #### [facility] [address] [place] [address] Dr. Fabienne Pride SGPTon 07-05-2022 ALT [Catalytic activity/Vol] 47 U/L Normal 16-63 [facility] Comment on above: Performed By: #### A LT, AST #### [facility] [address] [place] [address] Dr. Fabienne Pride GLYCOHEMOGLOBIN A1Con 2021 ADA RECOMMENDATION SEE BELOW Normal [facility] Comment on above: Result Comment: ADA RECOMMENDED LIMIT 4.0 - 6.0 ADA THERAPEUTIC TARGET < 7.0 ACTION SUGGESTED > 7.0 Performed By: #### D ATA1C #### [facility] [address] [place] [address] Dr. Fabienne Pride Glucose [Mass/Vol] 148 mg/dL Normal [facility] Comment on above: Performed By: #### D ATA1C #### [facility] [address] [place] [address] Dr. Fabienne Pride HbA1c (Bld) [Mass fraction] 6.8 % Critically high 4.5-6.2 [facility] Comment on above: Performed By: #### D ATA1C #### [facility] [address] [place] [address] [address] Fabienne Pride Office Visit (Cardiology)on 02-14-2022 Follow-up visit Diagnoses/Problems Assessed ASHD (arteriosclerotic heart disease) (414.00) (I25.10) History of non-ST elevation myocardial infarction (NSTEMI) (412) (I25.2) History of PTCA (V45.82) (Z98.61) Diabetes (250.00) (E11.9) Former smoker (V15.82) (Z87.891) Class 1 obesity with body mass index (BMI) of 34.0 to 34.9 in adult (278.00,V85.34) (E66.9,Z68.34) Orders ASHD (arteriosclerotic heart disease), Essential hypertension, benign, History of PTCA Start: Aspirin EC 81 MG Oral Tablet Delayed Release; TAKE 1 TABLET DAILY ALT - Alanine Aminotransferase, Serum; Status:Active - Retrospective Authorization; Requested for:14Feb2022; AST; Status:Active - Retrospective Authorization; Requested for:14Feb2022; Basic Metabolic Panel; Status:Active - Retrospective Authorization; Requested for:14Feb2022; Lipid Panel; Status:Active - Retrospective Authorization; Requested for:14Feb2022; ASHD (arteriosclerotic heart disease), History of non-ST elevation myocardial infarction (NSTEMI), History of PTCA, Hyperlipidemia Renew: Atorvastatin Calcium 80 MG Oral Tablet; TAKE 1 TABLET DAILY Class 1 obesity with body mass index (BMI) of 34.0 to 34.9 in adult, SocHx: Former smoker Healthy Weight Tips; Status:Complete - Retrospective Authorization; Done: 14Feb2022 Essential hypertension, benign Renew: Losartan Potassium 100 MG Oral Tablet; TAKE 1 TABLET DAILY SocHx: Former smoker Tobacco Use Screening; Status:Complete; Done: 14Feb2022 Unlinked Stop: Aspirin 81 MG TABS Patient Instructions Please bring all medicines, vitamins, and herbal supplements with you when you come to the office. Prescriptions will not be filled unless you are compliant with your follow up appointments or have a follow up appointment scheduled as per instruction of your physician. Refills should be requested at the time of your visit. follow up in 1 year Chief Complaint KEVON MAYEN is being seen for an annual follow-up of. 51-year-old gentleman returns for follow-up he is doing well he has no cardiovascular complaints. He denies angina or nitrate usage. He underwent remote PCI of the circumflex in 2018 with no recurrent events. He walks approximately 5 to 6 miles at work every day. He has underlying obesity, diabetes, hypertension and hyperlipidemia all of which are well controlled on current office visit other than blood pressure initially 162/88 but came down to 136/80 on repeat assessment. Recommendations: Continue current therapies, continue with active lifestyle and exercise and weight loss, will follow-up in 1 year Surgical History Problems History of Percutaneous transluminal coronary angioplasty History of Tonsillectomy Current Meds Medication NameInstruction Aspirin 81 MG TABSTAKE 1 TABLET DAILY. Atorvastatin Calcium 80 MG Oral TabletTAKE 1 TABLET DAILY. glipiZIDE ER 5 MG Oral Tablet Extended Release 24 HourTAKE ONE TABLET BY MOUTH DAILY hydroCHLOROthiazide 12.5 MG Oral CapsuleTAKE 1 CAPSULE ONCE DAILY. Lipoic Acid CAPS2 tabs daily Losartan Potassium 100 MG Oral TabletTAKE 1 TABLET DAILY. metFORMIN HCl - 1000 MG Oral TabletTAKE ONE TABLET BY MOUTH TWICE A DAY Metoprolol Tartrate 25 MG Oral TabletTAKE 1 TABLET DAILY. Pregabalin 150 MG Oral CapsuleTAKE 1 (ONE) CAPSULE BY MOUTH TWO TIMES DAILY Allergies Medication SERGO Inhibitors Adverse Reaction; Cough; Recorded By: Leandra Erazo; 01/13/2021 2:06:24 PM Social History Problems Daily caffeine consumption Pop 4 cans daily Former smoker (V15.82) (Z87.891) No alcohol use No illicit drug use Uses chewing tobacco Review of Systems Constitutional: not feeling tired. Cardiovascular: no intermittent leg claudication and as noted in HPI. Respiratory: no cough and no shortness of breath. Gastrointestinal: no change in bowel habits and no blood in stools. Integumentary: no skin rashes. Neurological: no seizures and no frequent falls. All other systems have been reviewed and are negative for complaint. Vitals Vital Signs Recorded: 14Feb2022 09:01AM Heart Rate62, L Radial Vryuyrlr525, LUE, Sitting Enskfmnut43, LUE, Sitting Height5 ft 11 in Ryhdlp422 lb BMI Qntcppcpxl34.87 kg/m2 BSA Calculated2.32 Tobacco Useb) No PHQ-2 #1. Over the last 2 weeks have you felt down, depressed or hopeless? (If yes, answer PHQ-9 below)No PHQ-2 #2. Over the last 2 weeks have you felt little interest or pleasure in doing things? (If yes, answer PHQ-9 below)No Signatures Electronically signed by : Angelique Viera DO; Feb 14 2022 1:28PM EST (Author) Normal [employer] Tobacco Screening.on 022 Adult depression screening assessment No [facility] 250 DO Work Phone: Tobacco use status [facility] b) No [facility] 250 DO Work Phone: Coding Summary.on 09-28-2021 Coding Summary. CD:[id number] Gh0bWw+PGhlYWQ+PE1FV WWeH14etNKapL7GF5kSR P5MWCPOIZFYDU6JUW4wr HE4ANnuB2ShofGp VlwkfWUbBN93JJc9IVE5 oNceRYaiqV5tqHOgD7x1 BqXdKM08xC86IIrdEAVj LkQ9RbGrpcfwiKIe C0drWyHajNTeBlz+PHRh YmxlIHdpZHRoPScxMDAl WjDwnXvrPW8sUc9mFSXq LWNvbGxhcHNlOiBj g8cdMUAaXDenPH2loPqt X9EfsYU9APVkr6v4Ad63 dHI+KMOiWMC6hXyrUMty n963LlSqh5gyUPM4 dWNhQFztJEE2G03iw3U4 WSRbJTSiSSL8oIT9rN7x lHuvgimpR6EjbUNhWdC1 SVF7nSDxwD9vkMpy nzbtfJ6hArn+I91QSP9H NBKVPH3RSum9J1YxNwbt dHI+XG02ZEXhPH47pOBr fYAnh6ypoRu0BfRu XOHhJIA6lXrbEMnxa5Py QIZtQ01ccRArw2S7ZIJp kHemtZHpOgSlqBO2jL9j GDfccvjqx1dfodlm Cjvps3iqnz44wZ38A34i AEkaAONuUSC7CEWuSBNv cMcnrd5zxO9bTn6+IDxj l0jki6kppGl9ZdLk SQVhfnRiqBawLLX1s7Iy Gs65G9NquHrts2PzLby4 ql14eSOob8J3tVM6PTdg PDImmB7eFUfeOyY5 GQGgDkSvjT77oCIxRBsx Zv6tzYztlMbkSI0lMSUe xwzlDAKzmP8vHFIktZGj pNodPC8cICPwnutd n231VnSaMDF8ICIsvEUf P0GncY8dOqZsFXBcUEXm D8ZoqIAjBYoqG863HKes XqB6PSIvelHaM4Ef LDUihMlwBlK2d3A4Se7X h5VzzgbtXGQ7QPjlEAE5 UoHtQsDoMtY7K9BqIab0 PORaeOqwQT4lB4Ok TKRhdxelqclyjAI3ZPTp WVQogU81cCLsSQmrWw8w x4D6m161CFPzWVHwwE35 Dp8gfOljPGUwqJNE cO8yrczoi5lhsbqpRmNk HQOiGRf6DFr3VLRayKyk MkFmWLT8QpF4HCN3yQKf bM6jzOuffpvxjD9f Oyc+Y61agZ0pCWD6AXC8 vbpmKKZtpzCbDL32WQ68 T0MxDwnfvEDgwPK+PGRp tyCsfQliMM5oKzWy p0dwm7EjMVeyV4QeLVJt RYrwCmf9SKSoIEI6iOO8 rH6yHYQqTExaj6W9sEV7 B6YdazCmlc0rk3mt CCGzKLsqA93vfABca5D5 JBWtrLY7QSHwiEolKeWl vY32Jkt+JBRenIdzt6Rr Dduyg2emo5yvxQz9 IjMwJSIgdmFsaWduPSJ0 w9QjGq18Y65wVLbxWUKb ONOiSRJdCDKhwPagbb5q qT0nZh4+PGNvbCB3 kZI6lG9pQZOrBcY2SEwh U398GzAcyCLjXjzhc9rs h6kodSq7VzLpFVDjepUi sLnaCLN9k0FrQq47 Z13yKWqsJCOpSYXrQKOj IWBymLeebs7huV8dUi3+ KY9oy9snga44sR28bRJ+ VGSlJJD3sTfyPZcq QNYdyO6tTWpvRuJ4KLKa NjQaqI25vQThXYxdYp1j dCuzzMbyHL2oRLAxhfkv z575DbEij0xtHUDo aSXkKYqgURA3L18zz9B2 LZMgLEUhYLY3aAS7iK4d bGlnbjogbGVmdDsgdmVy pFooAIxfBRdiD909 IHRvcDsnPlBhdGllbnQg JwBcNAd7G7IeZsw3VXRt nTciXK7kcKVdUOyzBv8u iXksgCduFZ7fBKSl bnsrz254BdLlb4dmRPZs sVObLFayOYN3Q76le0Z7 RFPkIXCjEJQ7wUV0iD7i bGlnbjogbGVmdDsg zbPgrBscENzvMApoI857 IHRvcDsnPkJpcnRoIERh nAC0GZ67HB89kZZhu0D4 nJJ7I6GoXRRsnzlf jgwtoBR9WWNzOYXazE38 Pn9exKmkRn0qPNQoRFU7 LUQbhLKcG0FaiX9uYeSy XCKzODSzA5EojHNq PDzvJ393XFdcNkT5FFYa mvTwQ6CjJSHznUtcYrP9 b5R3Jl1SI0K4VA08GW91 vKMam8Y2oWD7D1Hd IXEyzfvrbewpgGF3MXTj OXArwC15Gw3bfGybHe2c EITbRHF9XGYkvBLgJ1Db nX8bNjLxMOLlJMKf D7KigJQhSAhsK623BIhb BdQ0NKLbrjMgM9JiXBOa xEuyPyJ0e5W7Lg7QTUl2 VO78JD07cIIqt7E3 bBG5B3TuHRCljggcgvov wIZ5YQKtDJIbgS29Eq2d lRtwTl4vWFGqVVZ0LMAz nGPjY1KczG2pYmZd TGWvUKVfD0HtzJVaVRzi J294RWtcHyP7BGHttfIp A3EyOETqsTxtZeL9n0E0 Ru5NPPZeVN04GDO6 aIC3VF40UJ59O0WaPcix dGFibGU+PHRhYmxlIHdp ZHRoPScxMDAlJyBzdHls QJ3iJk2bUJQfZBPm iWvvuBKdFcNzt0frWTLd TNrxRD7esBykE9EgvFR2 HACul4j0Zu14V10oB9So dXA+ZIXpmLY2nVU6 gE5yFjVxAtF5VVquP274 CfAvpBVhGwngk2lmt1nj bIa2HcS4NJNpfzXfkXwj RFA8v1FpKl85W10m IHdpZHRoPSIxNSUiIHZh yBvnxn7mlQ0eRr6+PGNv bQL8tDB4sQ8tUuUxTxY1 ZPsyZ791WlOlaMCl Pufwz6lor8rpqWq8YeKy JTHwvvBdgBkzCWY4n3Fm Zn38C7CbeKpsy2KcXus3 jm51uJKgn8C8fFL9 B3UdABFbsyzxtHOxfLeu AY2rJFIpxjczLKWopT7f AHVlX6h7TjWfBuA1FSjh Z9IyijR8BEVshZCe CGhfDGL3J69xm6E1QESg GMTkOOB3gFG5mN6vyGcx bjogbGVmdDsgdmVydGlj MConHXovJ888GXHr iVhuVLFjaP4kIAUgdNSa gNsnUT9uEPEcuxyuBhDK RNOWKViEFFVNXD4OBYcC CA78ME84fKJno9N5 bUB6G5NxPFPvmcbwdokp lBA7SWRmYOPzzR53pCMw GMtnPj4kh8V9x375RQMj VSHtpL35Vu6ydIsx PEGgbVAJmX9jyrafw5ga zviqFhFyFLNtHPa2GQb5 JPNqkMfkFwNaSFQ0FhD1 KWC8rXHosO1piLbp fgetxL7nYws+MDMvMzEv YQu2OLupkZN+PHRkIHN0 vJehAJpsTXVpfY4nLELt A3l7HjHtRsY6VDum K5XhYTZpmmqnYt59lL1r JnTuPlX9UKmrI7OpbpT4 IBGyyGJtMVgdTXV7N30u h8C9CPVkLODyORB7 oQY4tC0ywLppdczdtFIp dDsgdmVydGljYWwtYWxp H110WZWayGhaNwPlLHcs IWPdYL47JF47sAEj m6D7mZR9B4DnSGGmbfsp gqqqgHU5TKUoBEEmcR92 hFKaLPfqUj3pz8S0h947 EPVxXSAdvI04Gs2w xBjvRLByzYYHnH4llvcd a7udflxcBhLnPOEbZOc5 SPt5XMCmdWveHnLqXTY2 CiK1FKN8lZViiB0j rHxkjcxsxH4dOvf+TWFs ZTwvdGQ+CBSvGBC5oCpd MYqpHDXjiL1gVVDdP7w6 FqNxQwQ2KXbyO1Lg UAJigdecYi68iW6iFhEw LfW1QPqzV6AcsaJ5TUFh kZHeDBdcVQC4W83rf2Q3 UYQwCKOgTAG3nTI5 bQ8peIcjzlsczACazSqf fvFgpVnfITiyAZytX520 CRNdwMvyQiWvLRViCB4n eTwvdGQ+CE20pk18 M4OoLftcQbz0LSMyIGW6 qDU7eB9bXTKnSWxms4D9 iSG0Y2MthyVhkr3iv8jg SCGzTXesK01fdISq l5I2LJJmuMF6TBBasBfy OnYyuG47Ipo+PGNvbGdy p3CrOvbom6tbu2dhcGu1 IjMwJSIgdmFsaWdu DSY1l3ApGm73X43jSEzi ZHRoPSIzMCUiIHZhbGln vp4shL7yPy9+PGNvbCB3 tSL6kA4gRoGpTnC7 QUxgT135YfIivJMuYyhu a1nty8qxwHg9UrKyDNVp qaXatMxlDZS6o8YtFs50 E8DvxSewq0JlMpd7 yo06tKEbv2E6jLJ0Y2Hg UNKjmpbosTHtjGnlML5b UGCdpjefRPNmvM1iRFWj C3u0TyJoCsH1NSdb D2IpreK8MQZkjFZnDGMz iHCWyZ2wbchtd2jlxyma TxKfBAPdHTa8HHz8PRCy mPxkQbRmYQC3SkN6 EHR2zBIprI3yiTsbxjpm fJ7hPvd+IPg8x9aybJZw DL9pvFQ2ZA04PP14hNXh b4Y9tPQ3G0UpQAGt hwzasmqaqHF4NNTpBYTf zL43Bt0oyBvlUg4mBANj UXK1FGAjzWEiC2ZzzM0s JcLeNPTjVGMcZ3Ru zDKaVCdyV211BZxtHlQ0 OEUvrdDsB1HsEKBorQmo IbC3x8G6Hg4BKS73TG93 GD53iZQfl3H5mVW9 O0AyWHPcggyrdbkxsSH1 XVRlZPHcpX50Rb0mlVza At3aASPyRDZ5AIJdzKEh N5WdaB9iHwKmGLDn KIByX4LtrBYdOJgnB078 XPxgMkK6DFAljbQhY9Yw HANqyYrsAiJ7d2M2Jx8T Ai45DQ19XE81dXTg q7Q1kXI7U9MnNJAfhisz nyejiQL8YOSpOGTvpT00 Zy8tcVqdXu0bEQBqNQE9 VEOcyLVfP4IfaU1p FcDgLWSgGHQbD1VxaRGi ZHaeB839KAycGmA7RPJx gkXbV1PlBFFvtSivWmG9 h0I1Sx3DUDahgwr7 C3CrXtejwHR+YT04PHSw VI12dFQuhQOjy9owqWh7 ZeHvPDSjLPC2zIgdXHcl e9OqHPRsC44xkWOc c2U6 (more content not included)... Normal [facility] Discharge Instructionson Discharge Instructions [id number] 6#1.00CD:127 Normal [facility] ED Note-Physicianon 09-21-19 ED Note-Physician Basic Information Time Seen: Denise Wan PA-C 09/19/2021 19:18 Chief Complaint Fell last night when he tripped over a pallet in the dark. Hit left elbow on scrap metal and obtain lac. tetanus x5 yrs ago. Bleeding controlled, but not closing. History of Present Illness 51-year-old male presents with a laceration to his left arm almost 24 hours ago. He scraped this on metal. He has Steri-Strips applied, but states that he came in because it is gaping. Last tetanus 5 years ago. Denies swelling, temperature or sensation changes. Review of Systems Review of systems negative unless otherwise stated in HPI Physical Exam Vitals & Measurements T: 36.7 ?C(Oral) HR: 62(Peripheral) RR: 16 BP: 172/82 SpO2: 99% HT: 180 cm HT: 180.0 cm WT: 110 kg WT: 110.0 kg BMI: 33.95 PHYSICAL EXAM: GENERAL: ALERT, NO ACUTE DISTRESS SKIN: 3 cm laceration to the left anterior distal upper arm, no foreign body, WARM, DRY, INTACT; NO CYANOSIS, NO RASH, NO ECCHYMOSIS HEAD: NORMOCEPHALIC, ATRAUMATIC NECK: SUPPLE, TRACHEA MIDLINE, FROM CARDIOVASCULAR: RRR, NO MURMUR, +S1, +S2 RESPIRATORY: NON-LABORED RESPIRATIONS, SYMMETRICAL EXPANSION EXTREMITIES: NO CYANOSIS, NO EDEMA, FROM ALL EXTREMITIES X 4, PULSES INTACT, NORMAL STRENGTH, NO TENDERNESS, NO DEFORMITY, CAPILLARY REFILL INTACT NEUROLOGICAL: A&OX3, SENSORY INTACT PSYCHIATRIC: COOPERATIVE, APPROPRIATE MOOD AND AFFECT Procedure Date/Time: Correct patient:Confirmed Correct procedure: Confirmed Correct side: Confirmed Correct site: Confirmed Consent by: Patient Consent type: Emergent Pre-op diagnosis: Post-op diagnosis: Description (rpt) Length:3 _cm Location: Other Shape: linear Depth: superficial Details: clean NV/tendon exam: intact Anesthesia:5 _ml 2% lido with epi Preparation: sterile field Irrigation: copious, with _20 ml saline Debridement: none Skin closure: Prolene sutures, #3 _sutures, #_ brenden Hemostasis: intact Complexity: single layer Post procedure exam: Circulation, motor, and sensory intact Patient tolerated: well Complications: None Performed by (rpt): Self Total time: 5_ min Notes: Medical Decision Making Due to wound being 24 hours old, I will loosely closed with sutures. Sutures out in 10 days. Bacitracin applied and he can follow-up with [facility]. Afebrile, not tachycardic, tolerating p.o. and ambulating at baseline and hemodynamically stable to be discharged home. Answered all questions. Patient in agreement with treatment. Assessment/Plan 1. Laceration of left upper arm without complication (S41.112A: Laceration without foreign body of left upper arm, initial encounter) Orders: bacitracin topical, 1 judy, Ointment, Topical, Once, Stop date 09/19/21 19:56:00 EDT, STAT, Start date 09/19/21 19:56:00 EDT epinephrine-lidocain e, 10 mL, Injection, SubCutaneous, Once, Stop date 09/19/21 19:30:00 EDT, STAT, Start date 09/19/21 19:30:00 EDT Medications Administered Given Lidocaine 2% with Epi 1:100,000 Injection, 10 mL, SubCutaneous Disposition Plan Patient Discharge Condition Stable Discharge Disposition Home Discharge Prescription List Prescriptions No active prescription medications Follow-up With When Contact Information [facility] [facility] [phone] In 3 days 09/22/2021 EDT Additional Instructions: Patient Education Laceration Care, Adult, Cfpa-jb-Kafi Sutured Wound Care, Bsgf-xz-Psyk Attestation This visit was performed by both the physician and an APC. I performed all aspects of the MDM as documented. Problem List/Past Medical History Ongoing No qualifying data Historical No qualifying data Medications Inpatient bacitracin top 500 units/g Oint PACKET, 1 judy, Topical, Once Home No active home medications Allergies No Known Medication Allergies Lab Results No qualifying data available. Diagnostic Results No qualifying data available. [facility] Comment on above: Result Comment: Elec tronically Signed By: Denise Wan PA-C\.br\Date and Time Signed: 09/19/21 20:00 EDT\.br\Electronically Co-Signed By: Malik Valencia DO\.br\Date and Time Co-Signed: 09/20/21 02:14 EDT Consent for Treatmenton 08-27 Consent for Treatment [id number] 20 [id number] #1.00CD:127 [facility] ED Clinical Summaryon 2021 ED Clinical Summary [place] [id number] ED Clinical Summary Person Information [facility]: [facility] Age[facility] 51 Years : 1970 Sex: Male Language: Azerbaijani PCP: SHERLY THOMPSON MD Marital Status: Phone: [phone] Visit Id: Visit Reason: Arm laceration; Elbow injury - Minor; Elbow pain-swelling; LEFT ELBOW LACERATION Speciality: Acuity: 4 Enc Type: Emergency Med Service: Emergency Arrival: 09/19/2021 18:59:52 Discharge: 09/19/2021 20:23:38 LOS: 000 01:24 Checkin: 09/19/2021 18:59:52 Checkout: 09/19/2021 20:23:38 Dispo Type: Home (Routine DC) EVENTS: Event Name Event Status Request Date/Time Start Date/Time Complete Date/Time Arrive Complete 09/19/2021 18:59:52 09/19/2021 18:59:52 09/19/2021 18:59:52 Document Home Meds Request 09/19/2021 18:59:52 Triage Complete 09/19/2021 18:59:52 09/19/2021 19:08:14 09/19/2021 19:08:14 Bed Assign Complete 09/19/2021 19:02:51 09/19/2021 19:02:51 09/19/2021 19:02:51 Dr Exam Complete 09/19/2021 19:02:51 09/19/2021 19:18:08 09/19/2021 19:18:08 RN Exam Complete 09/19/2021 19:02:51 09/19/2021 19:22:42 09/19/2021 19:22:42 Patient Care Complete 09/19/2021 19:06:39 09/19/2021 19:18:46 Registration Complete 09/19/2021 19:15:02 09/19/2021 19:15:02 09/19/2021 19:15:02 Reg Complete Request 09/19/2021 19:15:02 Registration Complete 09/19/2021 19:18:08 09/19/2021 19:21:15 09/19/2021 19:21:15 Dr Exam Complete 09/19/2021 19:19:56 09/19/2021 19:19:56 09/19/2021 19:19:56 Meds Admin Complete 09/19/2021 19:31:07 09/19/2021 19:48:55 Meds Admin Complete 09/19/2021 19:56:53 09/19/2021 20:22:42 Discharge Complete 09/19/2021 19:58:12 09/19/2021 20:23:50 09/19/2021 20:23:50 Transfer Complete 09/19/2021 20:23:50 09/19/2021 20:23:50 09/19/2021 20:23:50 ADDRESS: [id number] [id number] PHYS DOC NOTES: MEDICAL INFORMATION: Prescriptions Given: PATIENT EDUCATION INFORMATION: Instructions: Laceration Care, Adult, Bidh-je-Ydjo; Sutured Wound Care, Milu-to-Fiue Follow up: With: Address: When: [facility] [facility] [place] [phone] In 3 days 09/22/2021 DIAGNOSIS: 1:Laceration of left upper arm without complication Normal [facility] ED Patient Education Noteon 09-19-2021 ED Patient Education Note Dermatology Laceration Care, Adult A laceration is a cut that may go through all layers of the skin. The cut may also go into the tissue that is right under the skin. Some cuts heal on their own. Others need to be closed with stitches (sutures), brenden, skin adhesive strips, or skin glue. Taking care of your injury lowers your risk of infection, helps your injury to heal better, and may prevent scarring. Supplies needed: ? Soap. ? Water. ? Hand general pediatrician. ? Bandage (dressing). ? Antibiotic ointment. ? Clean towel. How to take care of your cut Wash your hands with soap and water before touching your wound or changing your bandage. If soap and water are not available, use hand general pediatrician. If your doctor used stitches or brenden: ? Keep the wound clean and dry. ? If you were given a bandage, change it at least once a day as told by your doctor. You should also change it if it gets wet or dirty. ? Keep the wound completely dry for the first 24 hours, or as told by your doctor. After that, you may take a shower or a bath. Do not get the wound soaked in water until after the stitches or brenden have been removed. ? Clean the wound once a day, or as told by your doctor: ? Wash the wound with soap and water. ? Rinse the wound with water to remove all soap. ? Pat the wound dry with a clean towel. Do not rub the wound. ? After you clean the wound, put a thin layer of antibiotic ointment on it as told by your doctor. This ointment: ? Helps to prevent infection. ? Keeps the bandage from sticking to the wound. ? Have your stitches or brenden removed as told by your doctor. If your doctor used skin adhesive strips: ? Keep the wound clean and dry. ? If you were given a bandage, you should change it at least once a day as told by your doctor. You should also change it if it gets wet or dirty. ? Do not get the skin adhesive strips wet. You can take a shower or a bath, but keep the wound dry. ? If the wound gets wet, pat it dry with a clean towel. Do not rub the wound. ? Skin adhesive strips fall off on their own. You can trim the strips as the wound heals. Do not remove any strips that are still stuck to the wound. They will fall off after a while. If your doctor used skin glue: ? Try to keep your wound dry, but you may briefly wet it in the shower or bath. Do not soak the wound in water, such as by swimming. ? After you take a shower or a bath, gently pat the wound dry with a clean towel. Do not rub the wound. ? Do not do any activities that will make you really sweaty until the skin glue has fallen off on its own. ? Do not apply liquid, cream, or ointment medicine to your wound while the skin glue is still on. ? If you were given a bandage, you should change it at least once a day or as told by your doctor. You should also change it if it gets dirty or wet. ? If a bandage is placed over the wound, do not let the tape touch the skin glue. ? Do not pick at the glue. The skin glue usually stays on for 5?10 days. Then, it falls off the skin. General instructions ? Take vyxt-rvy-nsdgatu and prescription medicines only as told by your doctor. ? If you were given antibiotic medicine or ointment, take or apply it as told by your doctor. Do not stop using it even if your condition improves. ? Do not scratch or pick at the wound. ? Check your wound every day for signs of infection. Watch for: ? Redness, swelling, or pain. ? Fluid, blood, or pus. ? Raise (elevate) the injured area above the level of your heart while you are sitting or lying down. ? If directed, put ice on the affected area: ? Put ice in a plastic bag. ? Place a towel between your skin and the bag. ? Leave the ice on for 20 minutes, 2?3 times a day. ? Prevent scarring by covering your wound with sunscreen of at least 30 SPF whenever you are outside after your wound has healed. ? Keep all follow-up visits as told by your doctor. This is important. Get help if: ? You got a tetanus shot and you have any of these problems at the injection site: ? Swelling. ? Very bad pain. ? Redness. ? Bleeding. ? You have a fever. ? A wound that was closed breaks open. ? You notice a bad smell coming from your wound or your bandage. ? You notice something coming out of the wound, such as wood or glass. ? Medicine does not relieve your pain. ? You have more redness, swelling, or pain at the site of your wound. ? You have fluid, blood, or pus coming from your wound. ? You notice a change in the color of your skin near your wound. ? You need to change the bandage often because fluid, blood, or pus is coming from the wound. ? You start to have a new rash. ? You start to have numbness around the wound. Get help right away if: ? You have very bad swelling around the wound. ? Your pain suddenly gets worse and is very bad. ? You notice painful lumps near the wound or anywhere on your body. ? You have a red streak (more content not included)... Normal [facility] ED Patient Summaryon 022 ED Patient Summary [address] [address] Patient Discharge Instructions Person Information Name: KEVON MAYEN Age: 51 Years Arrival Date: 09/19/2021 18:59:52 Discharge Diagnosis: 1:Laceration of left upper arm without complication Primary Care Physician: SHERLY THOMPSON MD Provider Information Primary Provider: Malik Valencia DO Advanced Director Of Player Personnel:None The exam and treatment you received in the Emergency Department were for an urgent problem and are not intended as complete care. It is important that you follow up with a doctor, nurse practitioner, or physician?s assistant facility manager for ongoing care. If your symptoms become worse or you do not improve as expected and you are unable to reach your usual health care provider, you should return to the Emergency Department. We are available 24 hours a day. KEVON MAYEN has been given the following list of patient education materials, prescriptions and follow-up instructions: Follow-up Instructions: With: Address: When: [facility] [facility] [place] [phone] In 3 days 09/22/2021 In the event that this physician does not participate in your insurance network, please consult with your insurance company to find a nearby participating provider. Patient Education Materials: Laceration Care, Adult, Qysv-gb-Xoqd; Sutured Wound Care, Lolj-ko-Kxqz A MESSAGE TO ALL PATIENTS REGARDING OPIOIDS PRESCRIPTION OPIOIDS: WHAT YOU NEED TO KNOW Prescription opioids can be used to help relieve wlyugbvc-hb-wttbbq pain and are often prescribed following a surgery or injury, or for certain health conditions. These medications can be an important part of the treatment but also come with serious risks. It is important to work with your healthcare provider to make sure you are getting the safest, most effective care. WHAT ARE THE RISKS AND SIDE EFFECTS OF OPIOID USE? Prescription opioids carry serious risks of addiction and overdose, especially with prolonged use. An opioid overdose, often marked by slowed breathing, can cause sudden . The use of prescription opioids can have a number of side effects as well, even when taken as directed: ? Tolerance?meaning you might need to take more of the medication for the same pain relief ? Physical dependence?meaning you have symptoms of withdrawal when a medication is stopped ? Increased sensitivity to pain ? Constipation ? Nausea, vomiting, and dry mouth ? Sleepiness and dizziness ? Confusion ? Depression ? Low levels of testosterone that can result in lower sex drive, energy, and strength ? Itching and sweating RISKS ARE GREATER WITH: ? History of drug misuse, substance use disorder, or overdose ? Mental health conditions (such as depression or anxiety) ? Sleep apnea ? Older age (65 years and older) ? Avoid alcohol while taking prescription opioids. Also, unless specifically advised by your health care provider, medications to avoid include: ? Benzodiazepines (such as Xanax or Valium) ? Muscle relaxants (such as Soma or Flexeril) ? Hypnotics (such as Ambien or Lunesta) ? Other prescription opioids KNOW YOUR OPTIONS Talk to your health care provider about ways to manage your pain that don?t involve prescription opioids. Some of these options may actually work better and have fewer risks and side effects. Options may include: ? Pain relievers such as acetaminophen, ibuprofen, and naproxen ? Some medication that are also used for depression or seizures ? Physical therapy and exercise ? Cognitive behavioral therapy, a psychological, goal-directed approach, in which patients learn how to modify physical, behavioral, and emotional triggers of pain and stress. IF YOU ARE PRESCRIBED OPIOIDS FOR PAIN: ? Never take opioids in greater amounts or more often than prescribed. ? Follow up with your primary health care provider. o Work together to create a plan on how to manage your pain. o Talk about ways to help manage your pain that don?t involve prescription opioids. o Talk about any and all concerns and side effects. ? Help prevent misuse and abuse o Never sell or share prescription opioids. o Never use another person?s prescription opioids. ? Store prescription opioids in a secure place and out of reach of others (this may include visitors, children, friends, and family). ? Safely dispose of unused prescription opioids: Find your community drug take-back program or your pharmacy mail-back program, or flush them down the toilet, following guidance from the Food and Drug Administration (www.fda.gov/Drugs/R esourcesForYou). ? Visit www.cdc.gov/drugover dose to learn about the risks of opioids abuse and overdose. ? If you believe you may be struggling with addiction, tell your health weekend caregiver and ask for guidance or call [facility] National Helpline at 5-416-039-FSZG. (more content not included)... Normal [facility] Workers Comp Formson 022 Workers Comp Forms [id number] 4#1.00CD:127 Normal [facility] Tobacco Screening.on 021 Fall risk assessment a) No falls within the last year [facility] [place] Work Phone: Tobacco use status CP a) Yes [facility] [place] Work Phone: [facility]reach [employer] 07-29-2020 Glucose [Mass/Vol] 117 mg/dL Normal [facility] Comment on above: Result Comment: PERF ORMED BY: [place] [address] PATHOLOGIST PERSONAL LINES INSURANCE ADVISOR ANTOINE ALVARES M.D. Performed By: #### O UTREACH GLYCO #### [facility] [address] HbA1c (Bld) [Mass fraction] 5.7 % High 4.3-5.6 [facility] Comment on above: Result Comment: Incr eased risk for diabetes: 5.7 - 6.4 diabetes: >6.4 glycemic control for adults with diabetes: <7.0 Performed By: #### O UTREAMARYBEL GLYCO #### [facility] [address] [place], [place] [id number] [facility] Vital Signs Date Time Vital Sign Value Performing Clinician Facility 01-06-2025 11:51-0400 Body height 180.3 cm Angelique Viera DO Work Phone: [facility] 01-06-2025 11:51-0400 Body mass index (BMI) [Ratio] 36.4 kg/m2 Angelique Viera DO Work Phone: [facility] 01-06-2025 11:51-0400 Body weight 118.39 kg Angelique Viera DO Work Phone: [facility] 01-06-2025 11:51-0400 Diastolic blood pressure 80 mm[Hg] Angelique Viera DO Work Phone: [facility] 01-06-2025 11:51-0400 Heart rate 56 /min Angelique Viera DO Work Phone: [facility] 01-06-2025 11:51-0400 Systolic blood pressure 144 mm[Hg] Angelique Viera DO Work Phone: [facility] 10-21-2024 11:10-0400 Body height 175.26 cm Sherly Thompson MD Work Phone: [facility] 10-21-2024 11:10-0400 Body mass index (BMI) [Ratio] 38.4 kg/m2 Sherly Thompson MD Work Phone: [facility] 10-21-2024 11:10-0400 Body weight 117.93 kg Sherly Thompson MD Work Phone: [facility] 10-21-2024 11:10-0400 Diastolic blood pressure 92 mm[Hg] Sherly Thompson MD Work Phone: [facility] 10-21-2024 11:10-0400 Heart rate 69 /min Sherly Thompson MD Work Phone: [facility] 10-21-2024 11:10-0400 Respiratory rate 16 /min Sherly Thompson MD Work Phone: [facility] 10-21-2024 11:10-0400 SaO2% (BldA) [Mass fraction] 89 % Sherly Thompson MD Work Phone: [facility] 10-21-2024 11:10-0400 Systolic blood pressure 180 mm[Hg] Sherly Thompson MD Work Phone: [facility] 09-10-2024 09:00-0400 Body height 175.26 cm Sherly Thompson MD Work Phone: [facility] 09-10-2024 09:00-0400 Body mass index (BMI) [Ratio] 39.2 kg/m2 Sherly Thompson MD Work Phone: [facility] 09-10-2024 09:00-0400 Body weight 120.65 kg Sherly Thompson MD Work Phone: [facility] 09-10-2024 09:00-0400 Diastolic blood pressure 71 mm[Hg] Sherly Thompson MD Work Phone: [facility] 09-10-2024 09:00-0400 Heart rate 66 /min Sherly Thompson MD Work Phone: [facility] 09-10-2024 09:00-0400 Systolic blood pressure 157 mm[Hg] Sherly Thompson MD Work Phone: [facility] 07-27-2024 13:06-0400 Body height 175.26 cm [facility] 07-27-2024 13:06-0400 Body mass index (BMI) [Ratio] 38.9 kg/m2 [facility] 07-27-2024 13:06-0400 Body temperature 97.9 [degF] [facility] 07-27-2024 13:06-0400 Body weight 119.74 kg [facility] 07-27-2024 13:06-0400 Diastolic blood pressure 72 mm[Hg] [facility] 07-27-2024 13:06-0400 Heart rate 65 /min [facility] 07-27-2024 13:06-0400 SaO2% (BldA) [Mass fraction] 98 % [facility] 07-27-2024 13:06-0400 Systolic blood pressure 168 mm[Hg] [facility] 03-18-2024 10:20-0500 Diastolic blood pressure 82 mm[Hg] [address] 03-18-2024 10:20-0500 Heart rate 59 /min [address] 03-18-2024 10:20-0500 Systolic blood pressure 128 mm[Hg] [address] 02-25-2024 09:05-0400 Body height 180.3 cm Angelique Viera DO Work Phone: [facility] 02-25-2024 09:05-0400 Body mass index (BMI) [Ratio] 35.43 kg/m2 Angelique Viera DO Work Phone: [facility] 02-25-2024 09:05-0400 Body weight 115.21 kg Angelique Viera DO Work Phone: [facility] 02-25-2024 09:05-0400 Diastolic blood pressure 68 mm[Hg] Angelique Viera DO Work Phone: [facility] 02-25-2024 09:05-0400 Heart rate 58 /min Angelique Viera DO Work Phone: [facility] 02-25-2024 09:05-0400 Systolic blood pressure 120 mm[Hg] Angelique Viera DO Work Phone: [facility] 01-05-2024 09:29-0400 Body height 177.8 cm Luis Alves SIEBEL SOLUTION ARCHITECT Work Phone: [facility] 01-05-2024 09:29-0400 Body mass index (BMI) [Ratio] 36.16 kg/m2 Luis Alves SIEBEL SOLUTION ARCHITECT Work Phone: [facility] 01-05-2024 09:290400 Body weight 114.31 kg Luis Alves SIEBEL SOLUTION ARCHITECT Work Phone: [facility] 01-05-2024 09:29-0400 Diastolic blood pressure 69 mm[Hg] Luis Alves SIEBEL SOLUTION ARCHITECT Work Phone: [facility] 01-05-2024 09:29-0400 Heart rate 63 /min Luis Alves SIEBEL SOLUTION ARCHITECT Work Phone: [facility] 01-05-2024 09:29-0400 Systolic blood pressure 143 mm[Hg] Luis Alves SIEBEL SOLUTION ARCHITECT Work Phone: [facility] 02-20-2023 09:13-0400 Body height 180.3 cm Angelique Viera DO Work Phone: [facility] 02-20-2023 09:13-0400 Body mass index (BMI) [Ratio] 36.4 kg/m2 Angelique Viera DO Work Phone: [facility] 02-20-2023 09:13-0400 Body weight 118.39 kg Angelique Viera DO Work Phone: [facility] 02-20-2023 09:13-0400 Diastolic blood pressure 82 mm[Hg] Angelique Viera DO Work Phone: [facility] 02-20-2023 09:13-0400 Heart rate 62 /min Angelique Viera DO Work Phone: [facility] 02-20-2023 09:13-0400 Systolic blood pressure 120 mm[Hg] Angelique Viera DO Work Phone: [facility] 02-14-2023 08:30-0400 Body height 175.26 cm Sherly Thompson Other [facility] Other 02-14-2023 08:30-0400 Body mass index (BMI) [Ratio] 38.8 kg/m2 Sherly Thompson Other [facility] Other 02-14-2023 08:30-0400 Body weight 119.21 kg Sherly Thompson Other [facility] Other 02-14-2023 08:30-0400 Diastolic blood pressure 80 mm[Hg] Sherly Thompson Other [facility] Other 02-14-2023 08:30-0400 Systolic blood pressure 162 mm[Hg] Sherly Thompson Other [facility] Other 08-16-2022 09:30-0400 Body height 175.26 cm Sherly Thompson Other [facility] Other 08-16-2022 09:30-0400 Body mass index (BMI) [Ratio] 39.13 kg/m2 Sherly Thompson Other [facility] Other 08-16-2022 09:30-0400 Body weight 120.2 kg Sherly Thompson Other [facility] Other 08-16-2022 09:30-0400 Diastolic blood pressure 80 mm[Hg] Sherly Thompson Other [facility] Other 08-16-2022 09:30-0400 SaO2% (BldA) [Mass fraction] 97 % Sherly Thompson Other [facility] Other 08-16-2022 09:30-0400 Systolic blood pressure 146 mm[Hg] Sherly Thompson Other [facility] Other 02-14-2022 09:24-0400 Diastolic blood pressure 70 mm[Hg] Sherly Thompson Work Phone: [facility] [address] DO Work Phone: 02-14-2022 09:24-0400 Systolic blood pressure 134 mm[Hg] Sherly Thompson Work Phone: [facility] [address] DO Work Phone: 02-14-2022 09:01-0400 Body height 180.34 cm Sherly Thompson Work Phone: [facility] DO Work Phone: 02-14-2022 09:01-0400 Body mass index (BMI) [Ratio] 34.87 kg/m2 Sherly Thompson Work Phone: [facility] [address] DO Work Phone: 02-14-2022 09:01-0400 Body surface area Derived from formula 2.32 m2 Sherly Thompson Work Phone: [facility] [address] DO Work Phone: 02-14-2022 09:01-0400 Body weight 113.4 kg Sherly Thompson Work Phone: [facility] [address] DO Work Phone: 02-14-2022 09:01-0400 Diastolic blood pressure 88 mm[Hg] Sherly Thompson Work Phone: [facility] [address] DO Work Phone: 02-14-2022 09:01-0400 Heart rate 62 /min Sherly Thompson Work Phone: [facility] DO Work Phone: 02-14-2022 09:01-0400 Systolic blood pressure 162 mm[Hg] Sherly Thompson Work Phone: [facility] [address] DO Work Phone: 09-19-2021 19:04-0400 Body temperature 98.06 [degF] Malik Erik [facility] 09-19-2021 19:04-0400 Diastolic blood pressure 82 mm[Hg] Malik Erik [facility] 09-19-2021 19:04-0400 Heart rate 62 /min Malik Erik [facility] 09-19-2021 19:04-0400 Respiratory rate 16 /min Malik Erik [facility] 09-19-2021 19:04-0400 SaO2% (BldA) [Mass fraction] 99 % Malik Erik [facility] 09-19-2021 19:04-0400 Systolic blood pressure 172 mm[Hg] Malik Erik [facility] 02-08-2021 09:49-0400 Body height 180.34 cm Sherly Thompson Work Phone: [facility] [address] [place] Work Phone: 02-08-2021 09:49-0400 Body mass index (BMI) [Ratio] 35.01 kg/m2 Sherly Thompson Work Phone: [facility] [address] [place] Work Phone: 02-08-2021 09:49-0400 Body surface area Derived from formula 2.32 m2 Sherly Thompson Work Phone: [facility] [address] [place] Work Phone: 02-08-2021 09:49-0400 Body weight 113.85 kg Sherly Thompson Work Phone: [facility] [address] [place] Work Phone: 02-08-2021 09:49-0400 Diastolic blood pressure 88 mm[Hg] Sherly Thompson Work Phone: [facility] [address] [place] Work Phone: 02-08-2021 09:49-0400 Heart rate 60 /min Sherly Thompson Work Phone: [facility] [address] [place] Work Phone: 02-08-2021 09:49-0400 Systolic blood pressure 122 mm[Hg] Sherly Thompson Work Phone: [facility] [address] [place] Work Phone: Encounters Encounter Date Encounter Type Care Provider Facility Start: 01-06-2025 End: 01-06-2025 Office outpatient visit 15 minutes Angelique Katalina HannahAylin DO Work Phone: [facility] Comment on above: ASHD (arteriosclerot ic heart disease); History of PTCA; History of non-ST elevation myocardial infarction (NSTEMI); Hyperlipidemia, unspecified hyperlipidemia type; Essential hypertension, benign; Obesity (BMI 30-39.9); Former smoker Start: 01-06-2025 End: 01-06-2025 ambulatory [facility] Start: 10-21-2024 End: 10-21-2024 ambulatory Sherly Thompson MD Work Phone: [place] Work Phone: Start: 10-21-2024 End: 10-21-2024 Patient encounter procedure Kendra Jimenez APRN-LENS POLISHER-C [facility] [place] Work Phone: Start: 09-10-2024 End: 09-10-2024 Patient encounter procedure Sherly Thompson MD -[facility] Work Phone: Start: 07-27-2024 End: 04-01-2025 ambulatory [facility] Work Phone: Start: 07-27-2024 End: 07-27-2024 Patient encounter procedure [facility] Work Phone: Start: 03-18-2024 End: 03-18-2024 Subsequent hospital visit by physician Stephany Narvaez Stress Room 1 [facility] Comment on above: ASHD (arteriosclerot ic heart disease); History of PTCA; Essential hypertension, benign; Hyperlipidemia, unspecified hyperlipidemia type; History of non-ST elevation myocardial infarction (NSTEMI) Start: 03-18-2024 End: 03-18-2024 ambulatory [facility] Start: 02-25-2024 End: 02-25-2024 Office outpatient visit 15 minutes Angelique Viera Work Phone: [facility] Comment on above: ASHD (arteriosclerot ic heart disease); History of PTCA; Essential hypertension, benign; Hyperlipidemia, unspecified hyperlipidemia type; History of non-ST elevation myocardial infarction (NSTEMI); Type 2 diabetes mellitus with other specified complication, with long-term current use of insulin; BMI 35.0-35.9,adult; Former smoker; Mixed hyperlipidemia Start: 02-25-2024 End: 02-25-2024 ambulatory [facility] Start: 01-05-2024 End: 01-05-2024 Bamboo flowsheet Luis Alves SIEBEL SOLUTION ARCHITECT Work Phone: [facility] Start: 01-05-2024 End: 01-05-2024 Bamboo flowsheet Luis Alves SIEBEL SOLUTION ARCHITECT Work Phone: [employer] [address] [address] Start: 01-05-2024 End: 01-05-2024 ambulatory LUIS ALVES Not Available Start: 01-05-2024 End: 01-05-2024 Office outpatient visit 15 minutes Luis Alves SIEBEL SOLUTION ARCHITECT Work Phone: [employer] [facility] Comment on above: Polyneuropathy (Prim joshua Dx); Type 2 diabetes mellitus with diabetic neuropathy, without long-term current use of insulin ([facility]); Ulnar neuropathy of both upper extremities Start: 12-11-2023 End: 12-11-2023 ambulatory MARTINE DE LEON Not Available Start: 12-08-2023 End: 12-08-2023 ambulatory LUIS ALVES Not Available Start: 03-10-2023 End: 03-10-2023 ambulatory Sherly Thompson Other [facility] Other Start: 03-10-2023 Telephone encounter Sherly Thompson [facility] Start: 02-20-2023 End: 02-20-2023 Office outpatient visit 15 minutes Angelique Viera DO Work Phone: [facility] Comment on above: ASHD (arteriosclerot ic heart disease); History of non-ST elevation myocardial infarction (NSTEMI); History of PTCA; Type 2 diabetes mellitus with other specified complication, with long-term current use of insulin ([facility]); Hyperlipidemia, unspecified hyperlipidemia type; Essential hypertension, benign Start: 02-14-2023 End: 02-14-2023 ambulatory Sherly Thompson Other [facility] Other Start: 02-14-2023 Encounter for genera l adult medical examination without abnormal findings Sherly Thompson [facility] Start: 02-14-2023 Periodic preventive med est patient 40-64yrs Sherly Thompson [facility] Start: 11-22-2022 End: 11-22-2022 ambulatory Sherly Thompson Other [facility] Other Start: 11-22-2022 Telephone encounter Sherly Thompson [facility] Start: 08-21-2022 End: 08-21-2022 ambulatory Sherly Thompson Other [facility] Other Start: 08-21-2022 Telephone encounter Sherly Donna [facility] Start: 08-16-2022 End: 08-16-2022 ambulatory Sherly Thompson Other [facility] Other Start: 08-16-2022 Office outpatient vi sit 25 minutes Sherly Thompson [facility] Start: 07-05-2022 End: 07-06-[address] ANGELIQUE VIERA Facility:[facility]1 Start: 02-28-2022 Rx Renewal Sherly Thompson Work Phone: [facility] 250 DO Work Phone: Start: 02-14-2022 End: 02-15-[address] SHERLY THOMPSON Facility:[facility]1 Start: 02-14-2022 Office outpatient vi sit 15 minutes Sherly Thompson Work Phone: [facility] 250 DO Work Phone: Start: 02-14-[address] Angelique Viera Fac ility: Start: 09-19-2021 End: 09-19-2021 Emergency department patient visit Malik Valencia [facility] Start: 02-26-2021 Rx Renewal Sherly Thompson Work Phone: [facility] [address] [place] Work Phone: Procedures Date Procedure Procedure Detail Performing Clinician Start: 03-18-2024 Cv strs tst xers&/or rx cont ecg trcg only Angelique Viera DO Work Phone: Start: 02-05-2023 History of percutane ous transluminal coronary angioplasty History of PTCA Angelique Viera DO Work Phone: History of percutane ous transluminal coronary angioplasty History of PTCA Sherly Thompson Work Phone: History of percutane ous transluminal coronary angioplasty History of PTCA Angelique Viera DO Work Phone: History of percutane ous transluminal coronary angioplasty History of PTCA Angelique Viera DO Work Phone: History of percutane ous transluminal coronary angioplasty History of PTCA Stephany 1 History of percutane ous transluminal coronary angioplasty History of PTCA Angelique Viera DO Work Phone: Percutaneous translu anitha coronary angioplasty Sherly Thompson Work Phone: Screening for malign ant neoplasm of colon Sherly Thompson Other Screening for malign ant neoplasm of prostate Sherly Thompson Other Tonsillectomy Sherly Thompson Work Phone: Viral screening Sherly Thompson Other Plan of Treatment Date Care Activity Detail Author Start: 01-09-2026 End: 01-09-2026 Patient encounter procedure 01/09/2026 8:30 AM EDT Office Visit [facility] [address] [place] [address] Aleisha Fox, METERS SUPERINTENDENT-FIELD SERVICE TECHNICIAN [address] [place] [address] [facility] Start: 03-03-2025 End: 03-03-2025 Patient encounter procedure 03/03/2025 11:00 AM EST Office Visit [facility] [address] [place] [address] Angelique Viera, DO [address] [place] [address] [facility] Start: 02-24-2025 End: 02-24-2025 Patient encounter procedure 02/24/2025 9:10 AM EDT Office Visit [facility] [address] [place] [address] Angelique Viera, DO [address] [place] [address] [facility] Start: 01-06-2025 End: 01-06-2026 Alanine aminotransferase [Enzymatic activity/volume] in Serum or Plasma by With P-5'-P Alanine Aminotransferase Lab Routine ASHD (arteriosclerotic heart disease) Hyperlipidemia, unspecified hyperlipidemia type Expected: 01/06/2025, Expires: 01/06/2026 [facility] Work Phone: Comment on above: Expected: 01/06/2025, Expires: Start: 01-06-2025 End: 01-06-2026 Aspartate aminotransferase [Enzymatic activity/volume] in Serum or Plasma by With P-5'-P Aspartate Aminotransferase Lab Routine ASHD (arteriosclerotic heart disease) Hyperlipidemia, unspecified hyperlipidemia type Expected: 01/06/2025, Expires: 01/06/2026 [facility] Work Phone: Comment on above: Expected: 01/06/2025, Expires: Start: 01-06-2025 End: 01-06-2026 Lipid 1996 panel - Serum or Plasma Lipid Panel Lab Routine ASHD (arteriosclerotic heart disease) Hyperlipidemia, unspecified hyperlipidemia type Expected: 01/06/2025, Expires: 01/06/2026 [facility] Work Phone: Comment on above: Expected: 01/06/2025, Expires: Start: 12-27-2024 COVID-19 Vaccine ( season) COVID-19 Vaccine ( season) [facility] Start: 12-27-2024 Influenza vaccination Influenza Vaccine (#1) [facility] Start: 05-03-2024 End: 05-03-2024 Patient encounter procedure 05/03/2024 8:20 AM EST Office Visit [facility] [address] [place] [phone] Luis Alves NP [address] [place] [address] [facility] Start: 02-25-2024 End: 02-24-2025 Alanine aminotransferase [Enzymatic activity/volume] in Serum or Plasma by With P-5'-P Alanine Aminotransferase Lab Routine ASHD (arteriosclerotic heart disease) History of PTCA Mixed hyperlipidemia Expected: 02/25/2024, Expires: 02/24/2025 [facility] Work Phone: Comment on above: Expected: 02/25/2024, Expires: Start: 02-25-2024 End: 02-24-2025 Aspartate aminotransferase [Enzymatic activity/volume] in Serum or Plasma by With P-5'-P Aspartate Aminotransferase Lab Routine ASHD (arteriosclerotic heart disease) History of PTCA Mixed hyperlipidemia Expected: 02/25/2024, Expires: 02/24/2025 [facility] Work Phone: Comment on above: Expected: 02/25/2024, Expires: Start: 02-25-2024 End: 02-24-2025 Lipid 1996 panel - Serum or Plasma Lipid Panel Lab Routine ASHD (arteriosclerotic heart disease) History of PTCA Mixed hyperlipidemia Expected: 02/25/2024, Expires: 02/24/2025 [facility] Work Phone: Comment on above: Expected: 02/25/2024, Expires: Start: 02-25-2024 End: 02-24-2025 NM Heart Perfusion W stress and W radionuclide IV Nuclear Stress Test Cardiac Nuclear Medicine Routine ASHD (arteriosclerotic heart disease) History of PTCA Essential hypertension, benign Hyperlipidemia, unspecified hyperlipidemia type History of non-ST elevation myocardial infarction (NSTEMI) Mixed hyperlipidemia Expected: 02/25/2024 (Approximate), Expires: 02/24/2025 [facility] Work Phone: Comment on above: Expected: 02/25/2024 (Approximate), Expi res: 02/24/2025 Start: 02-16-2024 Yearly Adult Physical Yearly Adult Physical [facility] Start: 12-28-2023 COVID-19 Vaccine ( season) COVID-19 Vaccine ( season) [facility] Start: 12-28-2023 Influenza vaccination Influenza Vaccine (#1) [facility] Start: 02-20-2023 End: 02-21-2024 Alanine aminotransferase [Enzymatic activity/volume] in Serum or Plasma by With P-5'-P Alanine Aminotransferase Lab Routine Hyperlipidemia, unspecified hyperlipidemia type Expected: 02/20/2023 (Approximate), Expires: 02/21/2024 [facility] Work Phone: Comment on above: Expected: 02/20/2023 (Approximate), Expi res: 02/21/2024 Start: 02-20-2023 End: 02-21-2024 Aspartate aminotransferase [Enzymatic activity/volume] in Serum or Plasma by With P-5'-P Aspartate Aminotransferase Lab Routine Hyperlipidemia, unspecified hyperlipidemia type Expected: 02/20/2023 (Approximate), Expires: 02/21/2024 [facility] Work Phone: Comment on above: Expected: 02/20/2023 (Approximate), Expi res: 02/21/2024 Start: 02-20-2023 End: 02-21-2024 Basic metabolic 2000 panel - Serum or Plasma Basic Metabolic Panel Lab Routine ASHD (arteriosclerotic heart disease) Type 2 diabetes mellitus with other specified complication, with long-term current use of insulin ([facility]) Hyperlipidemia, unspecified hyperlipidemia type Expected: 02/20/2023 (Approximate), Expires: 02/21/2024 [facility] Work Phone: Comment on above: Expected: 02/20/2023 (Approximate), Expi res: 02/21/2024 Start: 02-20-2023 End: 02-21-2024 Lipid 1996 panel - Serum or Plasma Lipid Panel Lab Routine Hyperlipidemia, unspecified hyperlipidemia type Expected: 02/20/2023 (Approximate), Expires: 02/21/2024 [facility] Work Phone: Comment on above: Expected: 02/20/2023 (Approximate), Expi res: 02/21/2024 Start: 02-20-2023 FUV, Provider: Angelique Viera, Status: Pen, Time: 9:00 AM FUV, Provider: Angelique Viera, Status: Pen, Time: 9:00 AM [facility] [address] DO Work Phone: Start: 12-27-2022 Influenza vaccination Influenza Vaccine (#1) [facility] Start: 02-14-2022 FUV, Provider: Angelique Viera, Status: Pen, Time: 9:00 AM [facility]UV, Provider: Angelique Viera, Status: Pen, Time: 9:[address] Work Phone: Start: 07-27-2019 Prostate specific antigen measurement PSA Prostate Cancer Screening [facility] Start: 07-27-2019 Zoster Vaccines (1 of 2) Zoster Vaccines (1 of 2) [facility] Start: 07-27-1991 DTaP/Tdap/Td Vaccines (1 - Tdap) DTaP/Tdap/Td Vaccines (1 - Tdap) [facility] Start: 1988 Hepatitis B Vaccines (1 of 3 - 19+ 3-dose series) Hepatitis B Vaccines (1 of 3 - 19+ 3-dose series) [facility] Start: 1988 Pneumococcal vaccination Pneumococcal Vaccine (1 of 2 - PCV) [facility] Start: 1988 Urine screening for protein Diabetes: Urine Protein Screening [facility] Start: 07-27-1987 Hepatitis C screening Hepatitis C Screening [facility] Start: 07-27-1979 Diabetic foot examination Diabetes: Foot Exam [facility] Start: 07-27-1979 Glaucoma screening Diabetes: Retinopathy Screening [facility] Start: 07-27-1975 Pneumococcal Vaccine: Pediatrics (0 to 5 Years) and At-Risk Patients (6 to 64 Years) (1 - PCV) Pneumococcal Vaccine: Pediatrics (0 to 5 Years) and At-Risk Patients (6 to 64 Years) (1 - PCV) [facility] Start: 07-27-1975 Pneumococcal Vaccine: Pediatrics (0 to 5 Years) and At-Risk Patients (6 to 64 Years) (1 of 2 - PCV) Pneumococcal Vaccine: Pediatrics (0 to 5 Years) and At-Risk Patients (6 to 64 Years) (1 of 2 - PCV) [facility] Start: 1970 MMR Vaccines (1 of 1 - Standard series) MMR Vaccines (1 of 1 - Standard series) [facility] Start: 01-25-1970 COVID-19 Vaccine (#1) COVID-19 Vaccine (#1) [facility] Start: 1969 Hemoglobin A1c measurement Diabetes: Hemoglobin A1C [facility] Start: 1969 Hepatitis B Vaccines (1 of 3 - 3-dose series) Hepatitis B Vaccines (1 of 3 - 3-dose series) [facility] Start: 1969 HIV screening HIV Screening [facility] Start: 1969 Lipid panel Lipid Panel [facility] Start: 1969 Medicare Annual Wellness Visit Medicare Annual Wellness Visit (AWV) [facility] Start: 1969 Screening for malignant neoplasm of colon [facility] Start: 1969 Urine screening for protein Diabetes: Urine Protein Screening [facility] Start: 1969 Yearly Adult Physical Yearly Adult Physical [facility] Payers Date Payer Category Payer [employer] [id number] 2021 Unknown 2021 Unknown [id number] 1969 Unknown [id number] 1969 Unknown [id number] 1969 Unknown [id number] 1969 Unknown [id number] 1969 Unknown [id number] 1969 Unknown [id number] 1969 Unknown [id number] 1969 Unknown [id number] 1959 Self-pay 1959 Unknown [id number] Private Health Insurance [id number] Unknown [id number] Unknown [id number] Social History Date Type Detail Facility Start: 02-20-2023 End: 01-06-2025 No illicit drug use No illicit drug use [facility] [address] [place] Work Phone: Comment on above: Pop 4 cans daily; Start: 02-20-2023 End: 01-06-2025 Sex Assigned At [facility] Start: 02-20-2023 End: 01-06-2025 Tobacco smoking status NHIS Ex-smoker [facility] Work Phone: Start: 04-28-1986 History of tobacco use Current smoke r [facility] Work Phone: Start: 04-28-1986 History of tobacco use Cigarette Smo ker [facility] Work Phone: Start: 02-20-2023 End: 01-06-2025 Tobacco use and exposure User of smokeless tobacco [facility] Work Phone: History of tobacco use Chews Tobacco [facility] Work Phone: Start: 02-20-2023 End: 01-06-2025 Alcohol intake Lifetime non-drinker (finding) [facility] Work Phone: Start: 1970 Sex Assigned At Not on file U [facility] Work Phone: Start: 02-10-2023 End: 03-18-2024 Exposure to SARS-CoV-2 (event) Not sure [facility] Start: 12-03-2023 Tobacco smoking stat us HIIS Never smoked tobacco [facility] Start: 12-08-2023 Alcoholic beverage intake Ex-drinker (finding) [facility] Start: 12-03-2023 Alcohol Comment Caffeine: 1-2 cups per day [facility] Start: 04-01-2025 Sex Male (finding) [facility] Start: 1970 Sex Assigned At Male F [facility] Start: 03-22-2022 Sex Male [facility] Medical Equipment Procedure Code Equipment Code Equipment Origin al Text Equipment Identifier Dates CL STENT DAVID 3. 5 X 26 FDA Start: 01-21-2018 CL STENT DAVID 3. 5 X 26 FDA Start: 01-21-2018 Clinical Notes 09-19-2021 to 01-06-2025 Angelique Viera, DO - 01/06/2025 11:00 AM EDTPatient InstructionsAttachments Note Date & Type Note Facility 01-06-2025 History of Present illness Narrative Chief Complaint Patient presents with Annual Exam 1 year follow up for ASHD (arteriosclerotic heart disease) Subjective Kevon Mayen is a 54 y.o. male 54-year-old gentleman returns for annual cardiovascular follow-up and doing very well he denies any cardiovascular events or complaints or nitrate usage. He does have atypical right sided chest discomfort that may be gallbladder related and improved with diet, exercise now getting 6000 steps in a day without any symptomatology. We contending the following treatment for ASHD, prior PCI, obesity, hypertension and hyperlipidemia He has a history of non-STEMI with revascularization of the circumflex in 2018 with no subsequent events. He has not had any follow-up ischemic surveillance since his event. He states his diabetes is under excellent control; he remains on appropriate GDMT as reviewed. Recommendations: Obtain appropriate labs, follow-up in 1 year with nurse practitioner Review of Systems Eyes: Positive for double vision. Cardiovascular: Positive for chest pain. Neurological: Positive for headaches and numbness. All other systems reviewed and are negative. Vitals: 01/06/25 1151 BP: 144/80 BP Location: Left arm Patient Position: Sitting Pulse: 56 Weight: 118 kg (261 lb) Height: 1.803 m (5' 11 ) Objective Physical Exam Constitutional: Appearance: Normal appearance. HENT: Nose: Nose normal. Neck: Vascular: No carotid bruit. Cardiovascular: Rate and Rhythm: Normal rate. Pulses: Normal pulses. Heart sounds: Normal heart sounds. Pulmonary: Effort: Pulmonary effort is normal. Abdominal: General: Bowel sounds are normal. Palpations: Abdomen is soft. Musculoskeletal: General: Normal range of motion. Cervical back: Normal range of motion. Right lower leg: No edema. Left lower leg: No edema. Skin: General: Skin is warm and dry. Neurological: General: No focal deficit present. Mental Status: He is alert. Psychiatric: Mood and Affect: Mood normal. Behavior: Behavior normal. Thought Content: Thought content normal. Judgment: Judgment normal. Allergies Sergo inhibitors Current Medications Current Outpatient Medications Medication Instructions aspirin 81 mg EC tablet 1 tablet, Daily atorvastatin (LIPITOR) 80 mg, oral, Daily DULoxetine (CYMBALTA) 30 mg, Daily empagliflozin (Jardiance) 10 mg 1 tablet, Daily glipiZIDE XL (GLUCOTROL XL) 10 mg, Daily hydroCHLOROthiazide (HYDRODIURIL) 50 mg, oral, Daily losartan (COZAAR) 100 mg, oral, Daily metFORMIN (GLUCOPHAGE) 1,000 mg, 2 times daily (morning and late afternoon) metoprolol succinate XL (TOPROL-XL) 12.5 mg, oral, Daily, Do not crush or chew. nitroglycerin (Nitrostat) 0.[address] 1 TABLET UNDER YOUR TONGUE EVERY 5 MINUTES NEEDED FOR CHEST PAIN FOR 3 DOSES ONLY. IF NO RELIEF, CALL 911 pregabalin (LYRICA) 225 mg, 2 times daily Assessment/Plan 1. ASHD (arteriosclerotic heart disease) 2. History of PTCA 3. History of non-ST elevation myocardial infarction (NSTEMI) 4. Hyperlipidemia, unspecified hyperlipidemia type 5. Essential hypertension, benign 6. Obesity (BMI 30-39.9) 7. Former smoker Scribe Attestation By signing my name below, I, Jessika Quijano LPN attest that this documentation has been prepared under the direction and in the presence of Angelique Viera DO. Provider Attestation - Scribe documentation All medical record entries made by the Scribe were at my direction and personally dictated by me. I have reviewed the chart and agree that the record accurately reflects my personal performance of the history, physical exam, discussion and plan. documented in this encounter [facility] Work Phone: 01-06-2025 Instructions Nataly Turner LPN - 01/06/2025 11:00 AM EDT Please bring all medicines, vitamins, and herbal supplements with you when you come to the office. Prescriptions will not be filled unless you are compliant with your follow up appointments or have a follow up appointment scheduled as per instruction of your physician. Refills should be requested at the time of your visit. BMI was above normal measurement. Current weight: 118 kg (261 lb) Weight change since last visit (-) denotes wt loss 7 lbs Weight loss needed to achieve BMI 25: 82.1 Lbs Weight loss needed to achieve BMI 30: 46.4 Lbs Provided instructions on dietary changes. The following attachments cannot be sent through Care Everywhere.Heart Healthy Diet (Azerbaijani)documented in this encounter [facility] Work Phone: 07-27-2024 Evaluation note Diagnosis Onset Date Resolution Bronchitis acute July 27 1:04pm Diabetic neuropathy acute July 27, 2024 1:04pm Type II diabetes mellitus acute July 27, 2024 1:04pm Colon cancer screening declined acute September 10, 2024 8:56am Diabetic neuropathy acute August 262024 8:56am Essential (primary) hypertension acute September 10, 2024 8:56am Morbid (severe) obesity due to excess calories acute September 10, 2024 8:56am Type II diabetes mellitus acute September 10, 2024 8:56am Polyneuropathy chronic October 21, 2024 11:08am Type 2 diabetes mellitus with diabetic neuropathy chronic October 212024 11:08am Ulnar neuropathy of both upper extremities chronic October 21 11:08am [place] Work Phone: 1([phone]) 553-859710-30-2024 History of Present illness Narrative* Angelique Viera, - 02/25/2024 9:00 AM EDT Subjective Kevon Mayen is a 53 y.o. male Chief Complaint Follow-up 53-year-old gentleman here for annual follow-up he is doing well he denies any cardiovascular events, complaints or nitrate usage or hospitalizations. His only complaint is related to diabetic neuropathy of both feet. He otherwise remains ambulatory. He has a history of non-STEMI with revascularization of the circumflex in 2018 with no subsequent events. He has not had any follow-up ischemic surveillance since his event. He states his diabetes isunder excellent control; he remains on appropriate GDMT as reviewed. Recommendations, obtain lipid panel, low level treadmill stress test, switch from metoprolol to tartrate to succinate 12.5 mg daily and follow-up in 1 year Review of Systems All other systems reviewed and are negative. Vitals: 02/25/24 0905 BP: 120/68 BP Location: Right arm Patient Position: Sitting Pulse: 58 Weight: 115 kg (254 lb) Height: 1.803 m (5' 11 ) Objective Physical Exam Constitutional: Appearance: Normal appearance. HENT: Nose: Nose normal. Neck: Vascular: No carotid bruit. Cardiovascular: Rate and Rhythm: Normal rate. Pulses: Normal pulses. Heart sounds: Normal heart sounds. Pulmonary: Effort: Pulmonary effort is normal. Abdominal: General: Bowel sounds are normal. Palpations: Abdomen is soft. Musculoskeletal: General: Normal range of motion. Cervical back: Normal range of motion. Right lower leg: No edema. Left lower leg: No edema. Skin: General: Skin is warm and dry. Neurological: General: No focal deficit present. Mental Status: He is alert. Psychiatric: Mood and Affect: Mood normal. Behavior: Behavior normal. Thought Content: Thought content normal. Judgment: Judgment normal. Allergies Sergo inhibitors Current Medications Current Outpatient Medications: aspirin 81 mg EC tablet, Take 1 tablet (81 mg) by mouth once daily., Disp: , Rfl: atorvastatin (Lipitor) 80 mg tablet, Take 1 tablet (80 mg) by mouth once daily., Disp: 90 tablet, Rfl: 3 DULoxetine (Cymbalta) [address] capsule, Take 1 capsule (30 mg) by mouth once daily. Do not crush orchew., Disp: , Rfl: empagliflozin (Jardiance) 10 mg, Take 1 tablet (10 mg) by mouth once daily., Disp: , Rfl: glipiZIDE XL (Glucotrol XL) 10 mg 24 hr tablet, Take 1 tablet (10 mg) by mouth once daily. Do not crush, chew, or split., Disp: , Rfl: hydroCHLOROthiazide (HYDRODiuril) 50 mg tablet, Take 1 tablet (50 mg) by mouth once daily., Disp: ,Rfl: losartan (Cozaar) 100 mg tablet, Take 1 tablet (100 mg) by mouth once daily., Disp: 90 tablet, Rfl:3 metFORMIN (Glucophage) 1,000 mg tablet, Take 1 tablet (1,000 mg) by mouth 2 times daily (morning and late afternoon)., Disp: , Rfl: metoprolol tartrate (Lopressor) 25 mg tablet, Take 0.5 tablets (12.5 mg) by mouth 2 times a day. (Patient taking differently: Take 0.5 tablets (12.5 mg) by mouth early in the morning..), Disp: 90 tablet, Rfl: 3 pregabalin (Lyrica) 225 mg capsule, Take 1 capsule (225 mg) by mouth 2 times a day., Disp: , Rfl: nitroglycerin (Nitrostat) 0.4 mg SL tablet, Place 1 tablet (0.4 mg) under the tongue every 5 minutes if needed for chest pain. May repeat dose every 5 minutes for up to 3 doses total., Disp: 100 tablet, Rfl: 11 Assessment/Plan 1. ASHD (arteriosclerotic heart disease) Follow Up In Cardiology 2. History of PTCA Follow Up In Cardiology 3. Essential hypertension, benign Follow Up In Cardiology Scribe Attestation By signing my name below, INataly LPN Scribe attest that this documentation has been prepared under the direction and in the presence of Aashish Viera DO. Provider Attestation - Scribe documentation All medical record entries made by the Scribe were at my direction and personally dictated by me. Ihave reviewed the chart and agree that the record accurately reflects my personal performance of the history, physical exam, discussion and plan. documented in this [facility] Work Phone: 1(702) 196-889410-30-2024 Instructions* Patient Instructions* Nataly Turner LPN - 02/25/2024 9:00 AM EDT Please bring all medicines, vitamins, and herbal supplements with you when you come to the office. Prescriptions will not be filled unless you are compliant with your follow up appointments or have a follow up appointment scheduled as per instruction of your physician. Refills should be requested at the time of your visit. BMI was above normal measurement. Current weight: 115 kg (254 lb) Weight change since last visit (-) denotes wt loss -7 lbs Weight loss needed to achieve BMI 25: 75.1 Lbs Weight loss needed to achieve BMI 30: 39.4 Lbs Advised to Increase physical activity. documented in this [facility] Work Phone: 1([phone]) 140-599609-09-2024 History of Present illness Narrative* Luis Alves NP - 01/05/2024 9:20 AM EDT Images from the original note were not included. No chief complaint on file. Subjective Kveon Mayen, 53 y.o., male Patient is here for follow up to polyneuropathy. He admits EMG of BUE since last seen. He takes Duloxetine which is beneficial. He admits numbness and tingling in the bilateral feet and finger tips. Pain is located from toes to his ankles, slight worsening. He continues on duloxetine which he states is helpful. He takes also Lyrica to help with the pain and states he is unable to sleep without this. Admits pain is worse with lying down and that weather can increase pain. He does take BG readings at home, recent average 136. He follows with PCP for this. Per patient next A1c will be drawn in February. Denies any new concern today. Review of Systems Constitutional: Negative for appetite change, fatigue and fever. Respiratory: Negative for cough, shortness of breath and wheezing. Cardiovascular: Negative for chest pain, palpitations and leg swelling. Gastrointestinal: Negative for abdominal pain, constipation, diarrhea and nausea. Musculoskeletal: Negative for arthralgias, gait problem and myalgias. Neurological: Positive for numbness. Negative for dizziness, tremors and headaches. Positive for tingling/burning in the fingers and feet Past Medical History: Diagnosis Date Diabetes mellitus, type 2 (CMS/HCC) Rheumatoid arthritis (CMS/HCC) Valvular heart disease No past surgical history on file. Family History Problem Relation Name Age of Onset Coronary artery disease Father Diabetes Father Hyperlipidemia Father Hypertension Father Alzheimer's disease Other Cancer Other Hyperlipidemia Other Hypertension Other Stroke Sibling Social History Tobacco Use Smoking status: Never Smokeless tobacco: Not on file Substance Use Topics Alcohol use: Not Currently Comment: Caffeine: 1-2 cups per day Allergies: Patient has no known allergies. Vitals: 01/05/24 0929 BP: 143/69 Pulse: 63 Body mass index is 36.16 kg/m . weight: 252 lb Neurologic exam: Mental status: Well nourished, well developed and in no acute distress. Grossly oriented to person, place and time. Recent and remote memory are intact. Language is fluent without aphasia. Attention and concentration are normal. Fund of knowledge is appropriate for level of education. Cranial nerves: CN II: Visual acuity is normal. Visual springer full to confrontation. CN III, IV, : pupils equal round and reactive to light. Extraocular movements intact. No ptosis present. CN V: Facial sensation is normal. CN VII: Full and symmetric facial movement. CN VIII: Hearing is intact. CN IX and X: Palate elevates symmetrically. CN XI: Shoulder shrug is normal bilaterally. CN XII: Tongue is midline without atrophy or fasciculation. Motor: RUE Strength deltoid, , biceps , triceps , wrist extensors , wrist flexor , lisw strength 5/5. LUE Strength deltoid , biceps , triceps , wrist extensors , wrist flexor , lisw strength 5/5. RLE Strength illopsoas, quadriceps, tibialis anterior, and gastrocnemius strength 5/5. LLE Strength illopsoas, quadriceps, tibialis anterior, and gastrocnemius strength 5/5. Normal tone x4 extremities. Sensory: Light Touch sensation diminished in distal extremities. Vibratory sensation is diminished in the great toe bilaterally. Pinprick sensation is decreased in the fingertips. Reflexes: RUE biceps reflex 1+ , brachioradialis reflex 1+. LUE biceps reflex 1+ , brachioradialis reflex 1+. RLE knee reflex 0, ankle reflex 0. LLE knee reflex 0, ankle reflex 0. Coronel's Sign negative. Coordination: Yezvfu-mz-gbwg testing is normal Rapid alternating movements are normal Gait: Normal Review and summary of old records: EMG of BUE on 12/11/23: Ulnar sensory neuropathies which are axonal loss and type non localizable and mild in degree electrically. This may be overestimated given the polyneuropathy identified on ED Xevaluation dated on 06/06/2022. No evidence of a brachial plexopathy or myopathy. EMG of BLE on 06/06/2022: a generalized process such as polyneuropathy, which is axon loss in type and severe in degree electrically. A superimposed radicular process cannot be excluded based on this EDX evaluation. Hemoglobin A1c on 06/30/21:8.7 Hemoglobin A1c on 02/14/22:6.8. Assessment/Plan Diagnoses and all orders for this visit: Polyneuropathy It is my impression that the patient has polyneuropathy affecting his bilateral lower extremities, most likely caused by his diabetes. Although better controlled currently, the patient reports A1c was as high as 14 at one time. Severe polyneuropathy was confirmed on EMG of the BLE in May 2022. EMG also notes that there may be a superimposed radicular process, although the patients symptoms do notseem to follow a dermatomal pattern nor does he complain of any radiating back pain. He is prescribed Lyrica by his PCP but due to worsening in symptoms we did add duloxetine for better control and he does state this has been beneficial thus far. He does admit to falls due to the numbness, although there have been no falls recently. More recently the patient admits to symptoms in the bilateral hands and EMG corroborated concerns for concurrent polyneuropathy of the BUE. PLAN: - EMG of the BUE reviewed with the patient today - Continue duloxetine 30 mg PO daily, currently tolerating without side effects. - Previously recommended referral to PT, this has been deferred by the patient. He remains physically active with his job. - Continue Lyrica (prescribed by PCP). - Fall precautions discussed. Type 2 diabetes mellitus with diabetic neuropathy, without long-term current use of insulin ([facility]) Likely causative for his polyneuropathy. PLAN: - Continue close follow up with PCP for ongoing monitoring and management - Recommended tight glucose control - Recommended daily skin checks of the feet and discussed the need to keep feet dry Bilateral ulnar neuropathy EMG of the BUE also identified bilateral ulnar neuropathies which are mild in degree. However, given the patients significant polyneuropathy this may be overestimated. Symptoms currently are more consistent with polyneuropathy and affect the tips of all of his fingers bilaterally. PLAN: - Continue to monitor clinically. If symptoms become more suggestive/concerning for ulnar neuropathy will send to ortho for a second opinion. Follow up in 3-4 months or sooner if symptoms worsen, fail to improve, or should a new neurologicalconcern arise. Pt has been fully educated on their diagnosis, treatment options, follow up plan, and return instructions documented in this encounterSaint [facility] [id number] Evaluation note* Encounter Date Diagnosis Assessment Notes Treatment Notes Treatment Clinical Notes Feb, Type 2 diabetes mellitus with hyperglycemia (ICD-10 - E11.65) [facility] Other 10-26-2023 History of Present illness Narrative* Angelique Viera, DO - 02/20/2023 9:00 AM EDT Subjective Kevon Mayen is a 52 y.o. male Chief Complaint Annual Exam 52-year-old gentleman returns for annual follow-up he is doing extremely well he still getting anywhere between 10-16,000 steps in a day. He describes no angina, recurrent cardiac events or hospitalizations or nitrate usage (does not have nitro therefore we will prescribe that) He has a history of non-STEMI with revascularization of the circumflex in 2018 with no subsequent events. He remains overweight with a BMI 36 but again as mentioned above very active. He he remains stable on current GDMT we have no recent labs Recommendations: Continue excellent lifestyle and aerobic capacity, will obtain lipid panel, chemistry panel, follow-up in 1 year Review of Systems All other systems reviewed and are negative. Visit Vitals BP 120/82 (BP Location: Right arm, Patient Position: Sitting) Pulse 62 Ht 1.803 m (5' 11 ) Wt 118 kg (261 lb) BMI 36.40 kg/m Smoking Status Former BSA 2.43 m Objective Physical Exam Current Medications Current Outpatient Medications: aspirin 81 mg EC tablet, Take 1 tablet (81 mg) by mouth once daily., Disp: , Rfl: atorvastatin (Lipitor) 80 mg tablet, TAKE ONE TABLET BY MOUTH ONCE DAILY, Disp: 90 tablet, Rfl: 3 DULoxetine (Cymbalta) [address] capsule, Take 1 capsule (30 mg) by mouth once daily. Do not crush orchew., Disp: , Rfl: empagliflozin (Jardiance) 10 mg, Take 1 tablet (10 mg) by mouth once daily., Disp: , Rfl: glipiZIDE XL (Glucotrol XL) 10 mg 24 hr tablet, Take 1 tablet (10 mg) by mouth once daily. Do not crush, chew, or split., Disp: , Rfl: hydroCHLOROthiazide (HYDRODiuril) 50 mg tablet, Take 1 tablet (50 mg) by mouth once daily., Disp: ,Rfl: losartan (Cozaar) 100 mg tablet, TAKE ONE TABLET BY MOUTH ONCE DAILY, Disp: 90 tablet, Rfl: 3 metFORMIN (Glucophage) 1,000 mg tablet, Take 1 tablet (1,000 mg) by mouth 2 times a day with meals., Disp: , Rfl: metoprolol tartrate (Lopressor) 25 mg tablet, TAKE HALF TABLET TWICE A DAY (Patient taking differently: Take 0.5 tablets (12.5 mg) by mouth once daily.), Disp: 90 tablet, Rfl: 3 pregabalin (Lyrica) 225 mg capsule, Take 1 capsule (225 mg) by mouth 2 times a day., Disp: , Rfl: Assessment/Plan No diagnosis found. [facility]: 1([phone]) 982-143110-26-2023 Instructions* Patient Instructions* Henry Espinal MA - 02/20/2023 9:00 AM EDT Please bring all medicines, vitamins, and herbal supplements with you when you come to the office. Prescriptions will not be filled unless you are compliant with your follow up appointments or have a follow up appointment scheduled as per instruction of your physician. Refills should be requested at the time of your visit. [facility] Work Phone: [phone]) 486-533210-20-2023 Evaluation note* Encounter Date Diagnosis Assessment Notes Treatment Notes Treatment Clinical Notes Jan, Well adult exam (ICD-10 - Z00.00) We have discussed the necessity of following up with PCP regularly as well as specialists, as needed. Discussed F/U with dentistry and optometry at least yearly. Discussed all preventative measures/ cancer screenings as applicable to this patient. Emphasized the importance of a reduced fat, low carb diet to promote heart health and controlled blood sugars. Reviewed social history and ensured patient is safe within the home today. Pt denies any abuse of alcohol, nicotine, caffeine or recreational drugs. I have ensured patient is of stable mental and physical health today. We have discussed appropriate F/U schedule as well as blood work and vaccinations that apply. All questions answered and patient is sent home pleased, without concerns. Jan, Type 2 diabetes mellitus with hyperglycemia (ICD-10 - E11.65) Diabetes is not well controlled. Add Jardiance. Continue metformin and glipizide. Call w glucose in 3 weeks and consider increasing dose to 25mg. Jan, Screening for colon cancer (ICD-10 - Z12.11) Pt states he still has cologuard kit at home. He is encouraged to complete it. Jan, Diabetic peripheral neuropathy (ICD-10 - E11.42) Continue followup w [facility]. [facility] Other 04-21-2023 Evaluation note* Encounter Date Diagnosis Assessment Notes Treatment Notes Treatment Clinical Notes Jul, Controlled type 2 diabetes mellitus with hyperglycemia, without long-term current use of insulin (ICD-10 - E11.65) Will increase glipizide and recheck a1c Jul, Essential (primary) hypertension (ICD-10 - I10) will increase hctz to improve bp and LE edema. Suggested elevating legs when able Jul, Diabetic peripheral neuropathy (ICD-10 - E11.42) pt declines to increase lyrica or add cymbalta. Will continue to take lyrica bid [facility] Other 05-25-2022 Hospital Discharge instructions Patient Education 09/19/2021 19:33:59 Laceration Care, Adult, Ucod-gv-Bysr Laceration Care, Adult A laceration is a cut that may go through all layers of the skin. The cut may also go into the tissue that is right under the skin. Some cuts heal on their own. Others need to be closed with stitches(sutures), brenden, skin adhesive strips, or skin glue. Taking care of your injury lowers your riskof infection, helps your injury to heal better, and may prevent scarring. Supplies needed: Soap. Water. Hand general pediatrician. Bandage (dressing). Antibiotic ointment. Clean towel. How to take care of your cut Wash your hands with soap and water before touching your wound or changing your bandage. If soap and water are not available, use hand general pediatrician. If your doctor used stitches or brenden: Keep the wound clean and dry. If you were given a bandage, change it at least once a day as told by your doctor. You should also change it if it gets wet or dirty. Keep the wound completely dry for the first 24 hours, or as told by your doctor. After that, you may take a shower or a bath. Do not get the wound soaked in water until after the stitches or brenden have been removed. Clean the wound once a day, or as told by your doctor: ?Wash the wound with soap and water. ?Rinse the wound with water to remove all soap. ?Pat the wound dry with a clean towel. Do not rub the wound. After you clean the wound, put a thin layer of antibiotic ointment on it as told by your doctor. This ointment: ?Helps to prevent infection. ?Keeps the bandage from sticking to the wound. Have your stitches or brenden removed as told by your doctor. If your doctor used skin adhesive strips: Keep the wound clean and dry. If you were given a bandage, you should change it at least once a day as told by your doctor. You should also change it if it gets wet or dirty. Do not get the skin adhesive strips wet. You can take a shower or a bath, but keep the wound dry. If the wound gets wet, pat it dry with a clean towel. Do not rub the wound. Skin adhesive strips fall off on their own. You can trim the strips as the wound heals. Do not remove any strips that are still stuck to the wound. They will fall off after a while. If your doctor used skin glue: Try to keep your wound dry, but you may briefly wet it in the shower or bath. Do not soak the woundin water, such as by swimming. After you take a shower or a bath, gently pat the wound dry with a clean towel. Do not rub the wound. Do not do any activities that will make you really sweaty until the skin glue has fallen off on itsown. Do not apply liquid, cream, or ointment medicine to your wound while the skin glue is still on. If you were given a bandage, you should change it at least once a day or as told by your doctor. You should also change it if it gets dirty or wet. If a bandage is placed over the wound, do not let the tape touch the skin glue. Do not pick at the glue. The skin glue usually stays on for 5 10 days. Then, it falls off the skin. General instructions Take ykqg-tnl-qkzuffa and prescription medicines only as told by your doctor. If you were given antibiotic medicine or ointment, take or apply it as told by your doctor. Do not stop using it even if your condition improves. Do not scratch or pick at the wound. Check your wound every day for signs of infection. Watch for: ?Redness, swelling, or pain. ?Fluid, blood, or pus. Raise (elevate) the injured area above the level of your heart while you are sitting or lying down. If directed, put ice on the affected area: ?Put ice in a plastic bag. ?Place a towel between your skin and the bag. ?Leave the ice on for 20 minutes, 2 3 times a day. Prevent scarring by covering your wound with sunscreen of at least 30 SPF whenever you are outside after your wound has healed. Keep all follow-up visits as told by your doctor. This is important. Get help if: You got a tetanus shot and you have any of these problems at the injection site: ?Swelling. ?Very bad pain. ?Redness. ?Bleeding. You have a fever. A wound that was closed breaks open. You notice a bad smell coming from your wound or your bandage. You notice something coming out of the wound, such as wood or glass. Medicine does not relieve your pain. You have more redness, swelling, or pain at the site of your wound. You have fluid, blood, or pus coming from your wound. You notice a change in the color of your skin near your wound. You need to change the bandage often because fluid, blood, or pus is coming from the wound. You start to have a new rash. You start to have numbness around the wound. Get help right away if: You have very bad swelling around the wound. Your pain suddenly gets worse and is very bad. You notice painful lumps near the wound or anywhere on your body. You have a red streak going away from your wound. The wound is on your hand or foot, and: ?You cannot move a finger or toe. ?Your fingers or toes look pale or bluish. Summary A laceration is a cut that may go through all layers of the skin. The cut may also go into the tissue right under the skin. Some cuts heal on their own. Others need to be closed with stitches, brenden, skin adhesive strips,or skin glue. Follow your doctor's instructions for caring for your cut. Proper care of a cut lowers the risk of infection, helps the cut heal better, and prevents scarring. This information is not intended to replace advice given to you by your health care provider. Make sure you discuss any questions you have with your health care provider. Document Released: 09/30/2008 Document Revised: 06/12/2018 Document Reviewed: 05/04/2018 [employer] Patient Education 2020 [employer]. 09/19/2021 19:33:56 Sutured Wound Care, Uqct-hp-Cjfk Sutured Wound Care Sutures are stitches that can be used to close wounds. Taking care of your wound properly can help prevent pain and infection. It can also help your wound to heal more quickly. Follow instructions from your doctor about how to care for your sutured wound. Supplies needed: Soap and water. A clean bandage (dressing), if needed. Antibiotic ointment. A clean towel. How to care for your sutured wound Keep the wound completely dry for the first 24 hours or as long as told by your doctor. After 24 48hours, you may shower or bathe as told by your doctor. Do not soak the wound or put the wound completely under water until the sutures have been removed. After the first 24 hours, clean the wound once a day, or as often as your doctor tells you to. Takethese steps: ?Wash the wound with soap and water. ?Rinse the wound with water. Make sure to wash all the soap off. ?Pat the wound dry with a clean towel. Do not rub the wound. After cleaning the wound, put a thin layer of antibiotic ointment on the wound as told by your doctor. This will help: ?Prevent infection. ?Keep the bandage from sticking to the wound. Follow instructions from your doctor about how to change your bandage: ?Wash your hands with soap and water. If you cannot use soap and water, use hand general pediatrician. ?Change your bandage at least once a day, or as often as told by your doctor. If your dressing getswet or dirty, change it. ?Leave sutures, skin glue, or skin tape (adhesive) strips in place. They may need to stay in place for 2 weeks or longer. If tape strips get loose and curl up, you may trim the loose edges. Do not remove tape strips completely unless your doctor says it is okay. Check your wound every day for signs of infection. Watch for: ?Redness, swelling, or pain. ?Fluid or blood. ?Warmth. ?Pus or a bad smell. Have the sutures removed as told by your doctor. Follow these instructions at home: Medicines Take or apply rexu-vsg-njjxxel and prescription medicines only as told by your doctor. If you were prescribed an antibiotic medicine or ointment, take or apply it as told by your doctor.Do not stop using the antibiotic even if you start to feel better. General instructions Cover your wound with clothes or put sunscreen on when you are outside. Use a sunscreen of at least30 SPF. Do not scratch or pick at your wound. Avoid stretching your wound. Raise (elevate) the injured area above the level of your heart while you are sitting or lying down,if possible. Drink enough fluids to keep your pee (urine) clear or pale yellow. Keep all follow-up visits as told by your doctor. This is important. Contact a doctor if: You were given a tetanus shot and you have any of the following at the site where the needle went in: ?Swelling. ?Very bad pain. ?Redness. ?Bleeding. Your wound breaks open. You have redness, swelling, or pain around your wound. You have fluid or blood coming from your wound. Your wound feels warm to the touch. You have a fever. You notice something coming out of your wound, such as wood or glass. You have pain that does not get better with medicine. The skin near your wound changes color. You need to change your bandage often due to a lot of fluid, blood, or pus coming from the wound. You get a new rash. You get numbness around the wound. Get help right away if: You have very bad swelling around your wound. You have pus or a bad smell coming from your wound. Your pain suddenly gets worse and is very bad. You have painful lumps near your wound or anywhere on your body. You have a red streak going away from your wound. The wound is on your hand or foot, and: ?You cannot move a finger or toe as you used to do. ?Your fingers or toes look pale or blue. ?You have numbness that spreads down your hand, foot, fingers, or toes. Summary Sutures are stitches that are used to close wounds. Taking care of your wound properly can help prevent pain and infection. Keep the wound completely dry for the first 24 hours or for as long as told by your doctor. After 24 48 hours, you may shower or bathe as directed by your doctor. This information is not intended to replace advice given to you by your health care provider. Make sure you discuss any questions you have with your health care provider. Document Released: 09/30/2008 Document Revised: 03/27/2018 Document Reviewed: 05/20/2017 [employer] Patient Education 2020 [employer]. Follow Up Care 09/19/2021 19:01:42 With:[facility]: [facility] [phone] Address:Unknown When:09/22/2021 [facility]05-25-2022 Evaluation + Plan noteExtracted from: Title:ED Note Author:Denise Wan PA-C Date :09/19/21 1. Laceration of left upper arm without complication (S41.112A: Laceration without foreign body of left upper arm, initial encounter) Orders: bacitracin topical, 1 judy, Ointment, Topical, Once, Stop date 09/19/21 19:56:00 EDT, STAT, Start date 09/19/21 19:56:00 EDT epinephrine-lidocaine, 10 mL, Injection, SubCutaneous, Once, Stop date 09/19/21 19:30:00 EDT, STAT, Start date 09/19/21 19:30:00 EDT [facility] VideoNot.es Other Evaluation note* Diagnosis ASHD (arteriosclerotic heart disease) Coronary atherosclerosis of unspecified type of vessel, [place] or graft History of non-ST elevation myocardial infarction (NSTEMI) History of PTCA Postsurgical percutaneous transluminal coronary angioplasty status Type 2 diabetes mellitus with other specified complication, with long-term current use of insulin ([facility]) Hyperlipidemia, unspecified hyperlipidemia type Essential hypertension, benign documented in this encounter [facility] Work Phone: Evaluation note* Diagnosis ASHD (arteriosclerotic heart disease) Coronary atherosclerosis of unspecified type of vessel, [place] or graft History of PTCA Postsurgical percutaneous transluminal coronary angioplasty status Essential hypertension, benign Hyperlipidemia, unspecified hyperlipidemia type History of non-ST elevation myocardial infarction (NSTEMI) Type 2 diabetes mellitus with other specified complication, with long-term current use of insulin BMI 35.0-35.9,adult Former smoker Personal history of tobacco use, presenting hazards to health Mixed hyperlipidemia documented in this encounter [facility] Work Phone: Evaluation note* Diagnosis ASHD (arteriosclerotic heart disease) Coronary atherosclerosis of unspecified type of vessel, [place] or graft History of PTCA Postsurgical percutaneous transluminal coronary angioplasty status Essential hypertension, benign Hyperlipidemia, unspecified hyperlipidemia type History of non-ST elevation myocardial infarction (NSTEMI) documented in this encounter [facility] Work Phone: Evaluation note* Diagnosis Polyneuropathy- Primary Unspecified hereditary and idiopathic peripheral neuropathy Type 2 diabetes mellitus with diabetic neuropathy, without long-term current use of insulin ([facility]) Ulnar neuropathy of both upper extremities [facility] Diagnosis Onset Date Resolution Status Admit Date Diabetic neuropathy acute July 27, 2024 1:04pm Type II diabetes mellitus acute July 27, 2024 1:04pm [place] Work Phone: Evaluation note* Diagnosis ASHD (arteriosclerotic heart disease) Coronary atherosclerosis of unspecified type of vessel, [place] or graft History of PTCA Postsurgical percutaneous transluminal coronary angioplasty status History of non-ST elevation myocardial infarction (NSTEMI) Hyperlipidemia, unspecified hyperlipidemia type Essential hypertension, benign Obesity (BMI 30-39.9) Former smoker Personal history of tobacco use, presenting hazards to health documented in this encounter [facility] Work Phone: History general Narrative - Reported* Type Description Date Medical History HTN Medical History myocardial infarction Medical History Diabetic Medical History heart cath w stenting Medical History Severe Neuropathy in feet Surgical History Heart cath w/ stenting Hospitalization History see above [place] Other Hospital course Narrative No data available for this section [facility] Consultation (Routine) - Authorized Specialty Diagnoses / Procedures Referred By Contmartin t Referred To Contact Cardiology Diagnoses ASHD (arteriosclerotic heart disease) History of PTCA Essential hypertension, benign Procedures Follow Up In Cardiology Angelique Viera DO [address] [facility] 2, [place] [id number] Angelique Viera DO [address] [place] [address] 2, [place] [id number] Referral ID Status Reason Start Date Expiration Date V isits Requested Visits Authorized [id number] Authorized 02/20/2023 02/20/2024 1 1 [facility] Work Phone: Reason for referral (narrative)No reason for referral [place] Work Phone: Reason for visit Narrative* Cardiac Stress Testing (Routine) - Authorized Specialty Diagnoses / Procedures Referred By Contac t Referred To Contact Cardiology Diagnoses ASHD (arteriosclerotic heart disease) History of PTCA Essential hypertension, benign Hyperlipidemia, unspecified hyperlipidemia type History of non-ST elevation myocardial infarction (NSTEMI) Procedures Stress Test WV CV STRS TST XERS&/OR RX CONT ECG TRCG ONLY Angelique Viera DO [address], [address] [place] [address] Phone: tel: fax: Referral ID Status Reason Start Date Expiration Date V isits Requested Visits Authorized [id number] Authorized 02/25/2024 02/24/2025 1 1 [facility] Work Phone: Family History No Family History Records FoundUnknown Family Member Name Dates Details Family history of CABG: Fath er(V17.49, Z82.49) Status:Active Family history of diabetes m ellitus: Father(V18.0, Z83.3) Status:Active Family history of myocardial infarction: Father(V17.3, Z82.49) Status:Active Family history of hyperlipid emia: Father(V18.19, Z83.438) Status:Active Unknown Family Member Name Dates Details Family history of CABG: Fath er(V17.49, Z82.49) Status:Active Family history of diabetes m ellitus: Father(V18.0, Z83.3) Status:Active Family history of myocardial infarction: Father(V17.3, Z82.49) Status:Active Family history of hyperlipid emia: Father(V18.19, Z83.438) Status:Active Unknown Family Member Name Dates Details Family history of CABG: Fath er(V17.49, Z82.49) Status:Active Family history of diabetes m ellitus: Father(V18.0, Z83.3) Status:Active Family history of myocardial infarction: Father(V17.3, Z82.49) Status:Active Family history of hyperlipid emia: Father(V18.19, Z83.438) Status:Active Unknown Family Member Name Dates Details Family history of CABG: Fath er(V17.49, Z82.49) Status:Active Family history of diabetes m ellitus: Father(V18.0, Z83.3) Status:Active Family history of myocardial infarction: Father(V17.3, Z82.49) Status:Active Family history of hyperlipid emia: Father(V18.19, Z83.438) Status:Active Unknown Family Member Name Dates Details Family history of CABG: Fath er(V17.49, Z82.49) Status:Active Family history of diabetes m ellitus: Father(V18.0, Z83.3) Status:Active Family history of myocardial infarction: Father(V17.3, Z82.49) Status:Active Family history of hyperlipid emia: Father(V18.19, Z83.438) Status:Active Relationship Condition Age at Onset Recorded Date/T harjinder brother Diabetes mellitus Unknown father Unknown Summary Purpose Advance Directives No Advanced Directives Records Found Advance Directive Response Recorded Date/ Time Advance Directives No December 8:24am Chief Complaint * KEVON MAYEN is being seen for an annual follow-up of. * 51-year-old gentleman returns for follow-up he is doing well he has no cardiovascular complaints. He denies angina or nitrate usage. He underwent remote PCI of the circumflex in 2017 with no recurrent events. He walks approximately 5 to 6 miles at work every day. He has underlying obesity, diabetes, hypertension and hyperlipidemia all of which are well controlled on current office visit other than blood pressure initially 162/88 but came down to 136/80 on repeat assessment. * Recommendations: Continue current therapies, continue with active lifestyle and exercise and weightloss, will follow-up in 1 year Chief Complaint and Reason for Visit Chief Complaint Admit Date Cough for 3 weeks July 27, 2024 1:04 pm Reason for Visit Admit Date Diabetic neuropathy July 27, 2024 1:04 pm Type II diabetes mellitus July 27 1:04pm Chief Complaint Admit Date Cough for 3 weeks July 27, 2024 1:04 pm 6 month f/u September 10, 2024 8:56a m 3-4 month f/u October 21, 2024 11:0 8am Reason for Visit Admit Date Bronchitis July 27, 2024 1:04 pm Diabetic neuropathy July 27, 2024 1:04 pm Type II diabetes mellitus July 27 1:04pm Colon cancer screening declined August 8:56am Diabetic neuropathy September 10, 2024 8:56a m Essential (primary) hypertension August 8:56am Morbid (severe) obesity due to excess ca lories September 10, 2024 8:56am Type II diabetes mellitus September 10, 2024 8:56am Polyneuropathy October 21, 2024 11:0 8am Type 2 diabetes mellitus with diabetic n europathy October 21, 2024 11:08am Ulnar neuropathy of both upper extremiti es October 21, 2024 11:08am Additional Source Comments (unrecognized sect ion and content) No Status Records FoundNo Status Records FoundNo Status Records FoundNo Status Records FoundNo Status Records FoundNo Status Records FoundNo Status Records FoundNo Status Records Found INFORMATION SOURCE (unrecogn ized section and content) DATE CREATED AUTHOR 05/06/2021 [facility] DATE CREATED AUTHOR AUTHOR'S ORGANIZ ATION 09/28/2021 [place] [facility] DATE CREATED AUTHOR AUTHOR'S ORGANIZ ATION 02/18/2022 [facility] DATE CREATED AUTHOR AUTHOR'S ORGANIZ ATION 02/18/2022 [employer] DATE CREATED AUTHOR AUTHOR'S ORGANIZ ATION 07/10/2022 [facility] DATE CREATED AUTHOR AUTHOR'S ORGANIZ ATION 01/06/2024 [facility] EPIC DATE CREATED AUTHOR AUTHOR'S ORGANIZ ATION 04/01/2024 [facility] DATE CREATED AUTHOR AUTHOR'S ORGANIZ ATION 01/08/2025 [facility] REASON FOR VISIT (unrecogniz ed section and content) Reason Comments Annual Exam 1yr Reason Comments Follow-up 1y Specialty Diagnoses / Procedures Referred By Althea owusu Referred To Contact Cardiology Diagnoses ASHD (arteriosclerotic heart disease) History of PTCA Essential hypertension, benign Procedures Follow Up In Cardiology Angelique Viera DO Phone: tel: fax: Angelique Viera DO Phone: tel: fax: Referral ID Status Reason Start Date Expiration Date V isits Requested Visits Authorized [id number] Authorized 02/20/2023 02/20/2024 1 1 Reason Comments Polyneuropathy Reason Comments Annual Exam 1 year follow up for ASHD (arteriosclerotic heart disease) Care Teams (unrecognized sec tion and content) Arts Administrator Or Manager Relationship Specialty Start Date End Date Sherly Thompson MD [address] [facility] [place] [address] PCP - General 04/28/09 Arts Administrator Or Manager Relationship Specialty Start Date End Date Sherly Thompson MD [address] [place] [address] PCP - General 04/28/09 Arts Administrator Or Manager Relationship Specialty Start Date End Date Sherly Thompson MD [address] [place] [address] PCP - General 04/28/09 Arts Administrator Or Manager Relationship Specialty Start Date End Date Sherly Thompson MD [address] [place] [phone] PCP - General Family Medicine 12/08/23 Arts Administrator Or Manager Relationship Specialty Start Date End Date Sherly Thompson MD [address] [place] [id number] PCP - General Family Medicine 12/08/23 Team Status: Active Member Role Status Dates Sherly Thompson MD Primary Care Provider Active Team Status: Inactive Member Role Status Dates Sherly Thompson MD Primary Care Provide r, Attending Provider Active Start: July 27, 2024 End: July 27, 2024 Team Status: Inactive Member Role Status Dates Sherly Thompson MD Primary Care Provider Active Start: July 27, 2024 End: July 27, 2024 Sherly Thompson MD Attending Provider Active St art: July 27, 2024 End: July 27, 2024 Team Status: Inactive Member Role Status Dates Sherly Thompson MD Primary Care Provider Active Start: September 10, 2024 End: September 10, 2024 Sherly Thompson MD Attending Provider Active St art: September 10, 2024 End: September 10, 2024 Team Status: Inactive Member Role Status Dates Kendra E Jimenez , METERS SUPERINTENDENT-LENS POLISHER-C Attending Provider Active Start: October 21, 2024 End: October 21, 2024 Sherly Thompson MD Primary Care Provider Active Start: October 21, 2024 End: October 21, 2024 Arts Administrator Or Manager Relationship Specialty Start Date End Date Sherly Thompson MD [address] [place] [address] PCP - General 04/28/09 Goals (unrecognized section and content) Goals may be documented in a n alternate section FOR RECORDS PERTAINING TO PATIENTS WHO ARE OR HAVE BEEN ENROLLED IN A CHEMICAL DEPENDENCY/SUBSTANCEABUSE PROGRAM, SOME INFORMATION MAY BE OMITTED. This clinical summary was aggregated from multiple sources. Caution should be exercised in using it in the provision of clinical care. This summary normalizes information from multiple sources, and as a consequence, information in this document may materially change the coding, format and clinical context of patient data. In addition, data may be omitted in some cases. CLINICAL DECISIONS SHOULD BE BASED ON THE PRIMARY CLINICAL RECORDS. [employer] [facility] provides no warranty or guarantee of the accuracy or completeness of information in this document.
--- OUTSIDE RECORDS SUMMARY | 2025-01-28 07:29 | XMS_ITS | Encounter Summary ---
Author Organization [facility] Address [address] [place] [address] Phone Care Team Providers Care Interior Wall Assembler Name Role Phone Sherly Prasad MD Primary Care Provider [phone] Encounter Details Date Type Department Care Team (Late st Contact Info) Description 07/29/2020 Orders Only [facility] [address] [place] [address] Conversion, Onbase Social History Tobacco Use Types Packs/Day Years [...] Description 03/03/2025 11:00 AM EST Office Visit [address] [phone] Marcus Barker DO [address] [facility] 2, [address] [address] 01/09/2026 8:30 AM EDT Office Visit [address] [phone] Aleisha Fox, [place] [address] [facility] 2, [facility] [address] [place] [address] Scheduled Orders Name Type Priority Associated Diagnoses Orde r Schedule OUTSIDE LAB SCAN Lab Ordered: 07/29/2020 documented as of this encounter Visit Diagnoses Not on filedocumented in this encounter Care Teams Interior Wall Assembler Relationship Specialty Start Date End Date Sherly Prasad MD [facility] [facility] [place] [address] [place] [address] PCP - General 04/28/09 documented as of this encounter
--- OUTSIDE RECORDS SUMMARY | 2025-01-28 07:29 | XMS_ITS | Encounter Summary ---
Author Organization [facility] Address [address] [place] [address] Phone Care Team Providers Care Car Painter Name Role Phone Sherly Prasad MD Primary Care Provider [phone] Encounter Details Date Type Department Care Team (Late st Contact Info) Description 03/29/2020 Orders Only [facility] [address] [place] [address] Conversion, Onbase Social History Tobacco Use Types [...] Description 03/03/2025 11:00 AM EST Office Visit [address] [phone] Marcus Barker DO [address] [facility] [address], [address] [address] 01/09/2026 8:30 AM EDT Office Visit [address] [address] Aleisha Fox, [place] [address] [facility] 2, [facility] [address] [place] [address] Scheduled Orders Name Type Priority Associated Diagnoses Orde r Schedule OUTSIDE LAB SCAN Lab Ordered: 03/29/2020 OUTSIDE LAB SCAN Lab Ordered: 03/29/2020 OUTSIDE LAB SCAN Lab Ordered: 03/29/2020 documented as of this encounter Visit Diagnoses Not on filedocumented in this encounter Care Teams Car Painter Relationship Specialty Start Date End Date Sherly Prasad MD [address] [place], [place] [id number] PCP - General 04/28/09 documented as of this encounter
--- OUTSIDE RECORDS SUMMARY | 2025-01-28 07:29 | XMS_ITS | Clinical Summary ---
Author Organization [facility] Healthcare Address [address] [place] [address] Care Team Providers Care Fusing Machine Tender Name Role Phone Sherly Prasad MD Primary Care Provider [phone] Allergies No known active allergies Medications empagliflozin (Jardiance) 10 MG Take 10 mg by mouth Daily Active hydroCHLOROthiaz brenda (Microzide) 12.5 MG capsule Take 12.5 mg by mouth Daily Active atorvastatin (Lipitor) 80 MG tablet Take 80 mg by mouth Daily Active metoprolol tartrate (Lopressor) 25 MG tablet Take 25 mg by mouth in the morning and 25 mg before bedtime. 0.5 TAB PO Twice a day . Active glipiZIDE (Glucotrol) 5 MG tablet Take 5 mg by mouth in the morning. Take before meals. Active losartan (Cozaar) 100 MG tablet Take 100 mg by mouth Daily Active aspirin (Vazalore) 81 MG capsule Take 81 mg by mouth Daily Do not crush or chew. Active metFORMIN (Glucophage) 1000 MG tablet Take 1,000 mg by mouth in the morning and 1,000 mg in the evening. Take with meals. Active pregabalin (Lyrica) 225 MG capsule Take 225 mg by mouth in the morning and 225 mg before bedtime. Active nitroglycerin (Nitrostat) 0.[address] 0.4 mg under the tongue 02/20/2023 Active Jardiance 25 MG Take 25 mg by mouth Daily 11/14/2023 Active hydroCHLOROthiaz brenda (HYDRODiuril) 50 MG tablet Take 50 mg by mouth in the morning. 11/24/2023 Active glipiZIDE XL (Glucotrol XL) 10 MG 24 hr tablet Take 10 mg by mouth in the morning. Take with meals. 12/24/2023 Active DULoxetine (Cymbalta) [address] capsuleIndicatio ns:Polyneuropath y, unspecified TAKE 1 CAPSULE BY MOUTH EVERY DAY 30 capsule 1 2024 Active Active Problems Problem Noted Date Diagnosed Date Diabetic peripheral neuropathy 12/03/2023 Paresthesia 12/03/2023 Overview (12/03/2023): It is my impression that the patient has paresthesias in the bilateral lower extremities. This is most likely secondary to a diabetic polyneuropathy. The patient is doing a better job controlling A1c. I want to investigate the type and severity of the neuropathy and determine if there is any concomitant radicular process. . PLAN: EMG lower ext Type 2 diabetes mellitus wit h diabetic neuropathy, without long-term current use of insulin 12/03/2023 Overview (12/03/2023): Likely causative for his polyneuropathy. PLAN: - Continue close follow up with PCP for ongoing monitoring and management - Recommended tight glucose control - Recommended daily skin checks of the feet and discussed the need to keep feet dry Polyneuropathy 12/03/2023 Overview (12/03/2023): It is my impression that the patient has polyneuropathy affecting his bilateral lower extremities, most likely caused by his diabetes. Although better controlled currently, the patient reports A1c was as high as 14 at one time. Polyneuropathy is confirmed on EMG of the BLE 05/2022 and is severe in degree electrically. EMG also notes that there may be a superimposed radicular process, although the patients symptoms do not seem to follow a dermatomal pattern nor does he complain of any radiating back pain. He is prescribed Lyrica by his PCP but due to worsening in symptoms we did add duloxetine for better control and he does state this has been beneficial thus far. He does admit to falls due to the numbness, although there have been no falls recently. PLAN: - Continue duloxetine 30 mg PO daily, currently tolerating without side effects. - Consider EMG of the BUE due to symptoms affecting the fingers, this has been discussed and deferred by the patient - Recommended referral to PT, this has been deferred by the patient. He remains physically active with his job. - Continue Lyrica 225 mg BID (prescribed by PCP) Family History Medical History Relation Name Comments Coronary artery disease Father Diabetes Father Hyperlipidemia Father Hypertension Father Alzheimer's disease Other Cancer Other Hyperlipidemia Other Hypertension Other Stroke Sibling Relation Name Status Comments Father Other Sibling Social History Tobacco Use Types Packs/Day Years Used Date Smoking Tobacco: Never Tobacco Cessation:Counseling Given: Not Answered Alcohol Use Standard Drinks/Week Comments Not Currently 0 (1 standard drink = 0.6 oz pur e alcohol) Caffeine: 1-2 cups per day Sex and Gender Information Value Date Recorded Sex Assigned at Not on file Legal Sex Male 12:45 PM EDT Gender Identity Not on file Sexual Orientation Not on file Last Filed Vital Signs Vital Sign Reading Time Taken Comments Blood Pressure 143/69 01/05/2024 9:29 AM EDT Pulse 63 01/05/2024 9:29 AM EDT Temperature - - Respiratory Rate - - Oxygen Saturation - - Inhaled Oxygen Concentration - - Weight 114 kg (252 lb) 01/05/2024 9:29 AM EDT Height 177.8 cm (5' 10 ) 01/05/2024 9:29 AM EDT Body Mass Index 36.16 01/05/2024 9:29 AM EDT Plan of Treatment Not on file Insurance [facility] Care Teams Fusing Machine Tender Relationship Specialty Start Date End Date Sherly Prasad MD [address] [place] [id number] PCP - General Family Medicine 08/19/24
--- OUTSIDE RECORDS SUMMARY | 2025-01-28 07:29 | XMS_ITS | Encounter Summary ---
Author Organization [facility] Address [address] [place] [address] Phone Care Team Providers Care Steel Loader Name Role Phone Sherly Prasad MD Primary Care Provider [phone] Reason for Visit * Reason Comments Med Refill Encounter Details Date Type Department Care Team (Late st Contact Info) Description 01/21/[address] [phone] Marcus Barker DO [address] [place] [address] [address], [address] [id number] Mixed hyperlipidemia; Essential hypertension, benign Social History Tobacco Use Types Packs/Day Years Used Date Smoking Tobacco: Former Cigarettes 0.5 11 S tarted: 1987 Smokeless Tobacco: Current Chew Alcohol Use Standard [...] Description 03/03/2025 11:00 AM EST Office Visit [address] [phone] Marcus Barker DO [address] [place] [address] [address], [address] [id number] 01/09/2026 8:30 AM EDT Office Visit [address] [phone] Aleisha Fox, WEIGHT ENGINEER-H[employer]IZONTAL [employer] SET UP OPERATOR [address] [facility] 2, [facility] [address] [place] [address] documented as of this encounter Visit Diagnoses Diagnosis Mixed hyperlipidemia Essential hypertension, benign documented in this encounter Care Teams Steel Loader Relationship Specialty Start Date End Date Sherly Prasad MD [address] [place] [id number] PCP - General 04/28/09 documented as of this encounter
[2025-01-28 08:17] LABS: Alanine Aminotransferase 49 U/L (16-63); Aspartate Amino Transferase 27 U/L (15-37); Cholesterol 107 mg/dL (<=200); HDL Cholesterol 31 mg/dL (40-60); Triglycerides 264 mg/dL (<=150); VLDL CHOLESTEROL 52.8 mg/dL
== END 2025-01-28 07:28 | disposition home or self-care (01) ==
LOC: LAB 07:27
PROVIDERS: Family Provider Internal Medicine Cardiovascular Disease; Visit Provider Internal Medicine Cardiovascular Disease
DX: I25.10 Atherosclerotic heart disease of native coronary artery without angina pectoris (principal); E78.5 Hyperlipidemia, unspecified
CPT/HCPCS: 36415; 80061; 84450; 84460